=== PATIENT | male | born 1970 | race Caucasian/White ===

== ENCOUNTER 2017-11-30 10:25 | Inpatient (IN) ==
[2017-11-30] MEDS ORDERED: Aspirin 81 MG TAB.CHEW PO ONE (10:47)
[2017-11-30] MEDS ORDERED: Nitroglycerin 0.4 MG TAB.SUBL SL PRN (10:47)
[2017-11-30 11:03] LABS: Activated Partial Thrombo Time 29.2 Seconds (26.0-36.0)
[2017-11-30 11:17] LABS: Troponin I < 0.03 ng/mL (< 0.04)
--- NOTE | 2017-11-30 11:19 | Emergency Department Note ---
Disposition Clinical Impression: Chest pain Disposition: Admitted As Inpatient Condition: Good Referrals: Isaias Thakkar MD [Primary Care Provider] - Forms: ED Satisfaction Letter Time of Disposition: 12:18 Chest Pain HPI - General Chief Complaint: ED Chest Pain Stated Complaint: CP/L arm pain Time Seen by Provider: 11/30/17 10:28 Source: patient Mode of arrival: ambulatory Limitations: no limitations Vital Signs Reviewed: Yes Nursing Notes Reviewed: Yes - History of Present Illness HPI Narrative: Patient presents to the ED with the chief complaint of left arm pain and chest pain. Patient reports that his left forearm started tingling and having a funny sensation in it. 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 He states that today he had that same feeling, but he could not get rid of that. Reports that he had a sharp stabbing type pain in his left shoulder that was not worse with movement and nothing seemed to make it better. He states that he then started developing some left-sided chest tightness and squeezing. Reports intermittent episodes of feeling clammy and diaphoretic. Denies any nausea or vomiting. Pain in his chest, did not radiate but was associated with left arm pain. No jaw pain. No history of hypertension, diabetes, hyperlipidemia. He does not smoke. Does have a family history of coronary artery disease. Denies any fever or chills, shortness of breath, abdominal pain, vomiting, diarrhea, pain or swelling in his legs, rash. Severity scale (1-10): 0 - Related Data Home Medications Medication Instructions Recorded Confirmed Advil 01/09/16 01/09/16 Previous Rx's Medication Instructions Recorded Sulfamethoxazole/Trimeth DS 1 each PO BID #20 tablet 01/09/16 [Bactrim DS] HYDROcodone/Acet 5/325 mg [[place] 1 tab PO Q4H PRN #15 tab 07/09/17 5-325 mg] Orphenadrine [Norflex] 100 mg PO Q12HR PRN #14 tablet.er 07/09/17 Allergies Allergy/AdvReac Type Severity Reaction Status Date / Time No Known Allergies Allergy Verified 07/09/17 12:26 Review of Systems: As reviewed in the HPI. All other systems reviewed are negative or normal. Chest Pain PMH - Past Medical History Medical history: Reports: no medical history Psychiatric history: Reports: no psych history - Social History Smoking Status: Current every day smoker Alcohol use: Reports: occasionally Drug use: Reports: marijuana Physical Exam CONSTITUTIONAL: [well appearing in no acute distress] SKIN: [Warm, dry, and intact without rash] EYES: [extraocular movements are grossly intact, clear conjunctiva] HENT: [Normocephalic, atraumatic, moist mucus membranes] NECK: [no obvious swelling, normal range of motion] PULMONARY: [normal chest rise and fall, no respiratory distress or stridor CARDIOVASCULAR: [regular rate, distal extremities are warm and well perfused] GASTROINSTESTINAL: [nondistended, non-tender] GENITOURINARY: [deferred] NEUROLOGIC: [normal speech, moves all extremities] MUSCULOSKELETAL: [no gross deformities, atraumatic, left shoulder is nontender to palpation, full range of motion, no crepitus, ecchymosis, erythema or deformities. His pain is not reproducible.] PSYCHIATRIC: [normal mood and affect] - General General appearance: alert Course Course Narrative: Patient presenting with chest pain and left arm pain. We will workup. Patient will likely not stay for admission even though he does have risk factors and a concerning story. His EKG does not show any acute ischemic changes, but is not normal. We will await troponin results and then discuss with him the next best option. - Reevaluation(s) Reevaluation #1: Workup his back and is unremarkable. After further discussion with the patient. He does state that his chest pain started after he was walking up and down stairs today at his job. We discussed the available options and patient is agreeable to stay for further workup. We discussed the possibility of stress test versus heart catheter. He is agreeable. He denies any current chest pain. Vital Signs Temperature 98.4 F 11/30/17 10:29 Pulse Rate 85 11/30/17 10:29 Respiratory Rate 18 11/30/17 10:29 Blood Pressure 181/109 11/30/17 10:29 O2 Sat by Pulse Oximetry 98 11/30/17 10:29 Temperature 98.4 F 11/30/17 10:29 Pulse Rate 84 11/30/17 11:11 Respiratory Rate 18 11/30/17 11:11 Blood Pressure 163/93 11/30/17 11:11 O2 Sat by Pulse Oximetry 97 11/30/17 11:11 Oxygen Delivery Oxygen Delivery Room Air Chest Pain - Medical Records Medical records reviewed: Yes I reviewed the patient's medical records. - Lab Data Lab results reviewed: Yes I reviewed the patient's lab results. Result diagrams: 11/30/17 10:41 11/30/17 10:41 Lab Results 11/30/17 11/30/17 11/30/17 Range/Units 10:31 10:41 10:41 WBC 6.3 (4.3-11.1) K/mcL RBC 5.36 (4.19-5.50) M/mcL Hgb 16.4 (12.9-16.9) g/dL Hct 46.6 (37.5-50.1) % MCV 86.9 (83.0-100.0) fL MCH 30.6 (28.0-33.3) pg MCHC 35.2 (31.6-35.5) g/dL RDW 12.2 (11.5-14.5) % Plt Count 227 (140-400) K/mcL MPV 9.3 L (9.4-12.4) fL Immature Gran % 0.6 (0-4) % Seg Neutrophils % 66.5 % Lymphocytes % 24.2 % Monocytes % 5.9 % Eosinophils % 2.2 % Basophils % 0.6 % Neutrophils # 4.2 (1.6-8.9) K/mcL Lymphocytes # 1.5 (0.6-4.6) K/mcL Monocytes # 0.4 (0.0-1.3) K/mcL Eosinophils # 0.1 (0.0-0.6) K/mcL Basophils # 0.0 (0.0-0.2) K/mcL PT 11.0 (9.4-12.1) Seconds INR 1.0 APTT 29.2 (26.0-36.0) Seconds D-Dimer 291 (0-500) ng/mLFEU Sodium 139 (136-145) mEq/L Potassium 3.9 (3.5-5.1) mEq/L Chloride 110 H (98-107) mEq/L Carbon Dioxide 22 L (23-29) mEq/L BUN 13 (6-20) mg/dL Creatinine 0.71 (0.70-1.30) mg/dL Est GFR ( Amer) > 60 (> 60) Est GFR (Non-Af Amer) > 60 (> 60) BUN/Creatinine Ratio 18 (6-26) Glucose 140 H (70-105) mg/dL Calculated Osmolality 290 (280-300) Calcium 9.2 (8.6-10.3) mg/dL Magnesium 2.0 (1.6-2.6) mg/dL Troponin I < 0.03 (< 0.04) ng/mL - Radiology Data Radiology results reviewed: Yes I reviewed the patient's radiology results. - EKG Data EKG attestation: Yes I reviewed and interpreted this EKG. EKG results narrative: Sinus rhythm, rate 83, AL interval 140, QRS 113, QTC 395, normal axis, intraventricular conduction delay, no acute ischemic changes Heart Score - Score History: Highly Suspicious EKG: Non Specific repolarisation Disturbance Age: 45-65 Risk Factors: Equal/Greater than 3 risk factor or history of atherosclerotic disease Troponin: Less than normal limit HEART Score Total: 6 S.B.A.R. - S.B.A.R. Situation: Demographics, MOA Background: Presenting Complaint, Relevant PMH, Meds, & Allergies Assessment: Vital Signs, Course and respsone to treatment, Exam Concerns, Patient/Family Expectation, Pertinant Lab Results, Outstanding Labs Recommendation: Recommendation based on pending studies, treatments, or consults S.B.A.R. Report Given to: Dr. Suman Camargo.A.Gabi Repor Time: 12:18 Attestation Statement - Attestation Attestation: I, Gage Will DO, examined this patient [id number] and my medical decision-making was reviewed with Dr. Dariel Martin, Resident Physician. I agree with the documented findings, disposition and treatment plan as described except to the extent set forth below. Please see my progress notes for details.
[2017-11-30 11:45] LABS: BUN/Creatinine Ratio 18 (6-26); Basophils % 0.6 %; Blood Urea Nitrogen 13 mg/dL (6-20); Calcium 9.2 mg/dL (8.6-10.3); Carbon Dioxide 22 mEq/L (23-29); Chloride 110 mEq/L (98-107); Eosinophils # 0.1 K/mcL (0.0-0.6); Eosinophils % 2.2 %; Glucose 140 mg/dL (70-105); Hematocrit 46.6 % (37.5-50.1); Hemoglobin 16.4 g/dL (12.9-16.9); Immature Granulocytes % 0.6 % (0-4); Lymphocytes # 1.5 K/mcL (0.6-4.6); Lymphocytes % 24.2 %; Mean Corpuscular HGB Conc 35.2 g/dL (31.6-35.5); Mean Corpuscular Hemoglobin 30.6 pg (28.0-33.3); Mean Corpuscular Volume 86.9 fL (83.0-100.0); Mean Platelet Volume 9.3 fL (9.4-12.4); Monocytes # 0.4 K/mcL (0.0-1.3); Monocytes % 5.9 %; Neutrophils # 4.2 K/mcL (1.6-8.9); Osmolality,Calculated 290 (280-300); Platelet Count 227 K/mcL (140-400); Potassium 3.9 mEq/L (3.5-5.1); Red Blood Count 5.36 M/mcL (4.19-5.50); Red Cell Distribution Width 12.2 % (11.5-14.5); Segmented Neutrophils % 66.5 %; Sodium 139 mEq/L (136-145); eGFR For African Americans > 60 (> 60); eGFR For Non-African Americans > 60 (> 60)
--- NOTE | 2017-11-30 12:03 | Emergency Department Note ---
Disposition Clinical Impression: Chest pain Qualifiers: Chest pain type: unspecified Qualified Code(s): R07.9 - Chest pain, unspecified Disposition: Admitted As Inpatient Condition: Fair Referrals: Isaias Thakkar MD [Primary Care Provider] - Forms: ED Satisfaction Letter Time of Disposition: 12:29 General Adult HPI - General Chief complaint: ED Chest Pain Stated complaint: CP/L arm pain Time Seen by Provider: 11/30/17 10:28 Source: patient Mode of arrival: ambulatory Limitations: no limitations - History of Present Illness Pain Scale: 0 - Related Data Home Medications Medication Instructions Recorded Confirmed Advil 01/09/16 01/09/16 Previous Rx's Medication Instructions Recorded Sulfamethoxazole/Trimeth DS 1 each PO BID #20 tablet 01/09/16 [Bactrim DS] HYDROcodone/Acet 5/325 mg [[place] 1 tab PO Q4H PRN #15 tab 07/09/17 5-325 mg] Orphenadrine [Norflex] 100 mg PO Q12HR PRN #14 tablet.er 07/09/17 Allergies Allergy/AdvReac Type Severity Reaction Status Date / Time No Known Allergies Allergy Verified 07/09/17 12:26 Past Medical History - Past Medical History Medical history: Reports: no medical history Psychiatric history: Reports: no psych history - Social History Smoking Status: Current every day smoker Smokeless Tobacco Status: No Alcohol use: Reports: occasionally Drug use: Reports: marijuana Physical Exam - General Limitations: no limitations General appearance: alert Course Vital Signs Temperature 98.4 F 11/30/17 10:29 Pulse Rate 85 11/30/17 10:29 Respiratory Rate 18 11/30/17 10:29 Blood Pressure 181/109 11/30/17 10:29 O2 Sat by Pulse Oximetry 98 11/30/17 10:29 Temperature 98.4 F 11/30/17 10:29 Pulse Rate 84 11/30/17 11:11 Respiratory Rate 18 11/30/17 11:11 Blood Pressure 163/93 11/30/17 11:11 O2 Sat by Pulse Oximetry 97 11/30/17 11:11 Oxygen Delivery Oxygen Delivery Room Air Medical Decision Making - Lab Data Result diagrams: 11/30/17 10:41 11/30/17 10:41 Lab Results 11/30/17 11/30/17 11/30/17 Range/Units 10:31 10:41 10:41 WBC 6.3 (4.3-11.1) K/mcL RBC 5.36 (4.19-5.50) M/mcL Hgb 16.4 (12.9-16.9) g/dL Hct 46.6 (37.5-50.1) % MCV 86.9 (83.0-100.0) fL MCH 30.6 (28.0-33.3) pg MCHC 35.2 (31.6-35.5) g/dL RDW 12.2 (11.5-14.5) % Plt Count 227 (140-400) K/mcL MPV 9.3 L (9.4-12.4) fL Immature Gran % 0.6 (0-4) % Seg Neutrophils % 66.5 % Lymphocytes % 24.2 % Monocytes % 5.9 % Eosinophils % 2.2 % Basophils % 0.6 % Neutrophils # 4.2 (1.6-8.9) K/mcL Lymphocytes # 1.5 (0.6-4.6) K/mcL Monocytes # 0.4 (0.0-1.3) K/mcL Eosinophils # 0.1 (0.0-0.6) K/mcL Basophils # 0.0 (0.0-0.2) K/mcL PT 11.0 (9.4-12.1) Seconds INR 1.0 APTT 29.2 (26.0-36.0) Seconds D-Dimer 291 (0-500) ng/mLFEU Sodium 139 (136-145) mEq/L Potassium 3.9 (3.5-5.1) mEq/L Chloride 110 H (98-107) mEq/L Carbon Dioxide 22 L (23-29) mEq/L BUN 13 (6-20) mg/dL Creatinine 0.71 (0.70-1.30) mg/dL Est GFR ( Amer) > 60 (> 60) Est GFR (Non-Af Amer) > 60 (> 60) BUN/Creatinine Ratio 18 (6-26) Glucose 140 H (70-105) mg/dL Calculated Osmolality 290 (280-300) Calcium 9.2 (8.6-10.3) mg/dL Magnesium 2.0 (1.6-2.6) mg/dL Troponin I < 0.03 (< 0.04) ng/mL Attestation Statement - Attestation Attestation: I, Gage Will DO, examined this patient [id number] and my medical decision-making was reviewed with Dr. Dariel Martin, Resident Physician. I agree with the documented findings, disposition and treatment plan as described except to the extent set forth below. Please see my progress notes for details. 47-year-old male presents emergency room a left-sided arm pain that started 4 days ago. Initially started in his left forearm and is now rated way up past the elbow into the left shoulder and into the left anterior chest wall. Patient said that he felt some heaviness this morning while he was at work. The symptoms resolved after arrival here. He did describe some sweating sensation while here. He did not take any nitroglycerin. He does have a family history of cardiac disease as well as being a smoker and having elevated blood pressure. Patient denies any trauma or injury. Currently denying chest pain shortness of breath headache vision changes nausea vomiting or diarrhea. He has no other symptoms or complaints at this time. Patient will have screening evaluation completed CBC chemistry EKG labs including troponin and BMP and CBC. Chest x-ray and EKG are still pending. Repeat EKG to be collected. Patient does not have any anginal-like presentation this time and some of his symptoms do appear to be radicular in nature with the presence starting in his left arm approximately 4 days ago. Patient's heart score does have a low risk at this point based on family history. Patient will have stratification completed and discuss disposition. Currently he does not require any other intervention. See detailed documentation of the physical exam, medical intervention, medical decision-making and disposition in the resident physician's note. No critical care provider the patient's treatment course at this time 1215 Patient did disclose that he did have anginal symptoms while going upstairs today. After this conversation was having determined the patient would be more benefited from a admission for observation this point. He agrees this is accommodating to the care. He has not had any symptoms or here. Aspirin was given and no nitroglycerin was required. Hospitalist dr. Martell reviewed the case and no other recommendations or concerns at this time. Patient will not be started on a heparin drip considering he is low risk at this point.
[2017-11-30] MEDS ORDERED: Naloxone 0.4 MG/ML INJ IVP PRN ×2 (12:25→12:26)
--- NOTE | 2017-11-30 12:50 | Internal Med History&Physical ---
Addendum entered and electronically signed by Rebeka Varghese 11/30/17 13:15: HPI: This is a 47-year-old gentleman with no past medical history of cardiac disease presented with left arm pain and chest pain. She had a chest pain on and off in the past 4 days. Patient reports that his left forearm started tingling and having a funny sensation. He states that today he had that same feeling, but he could not get rid of that. Reports that he had a sharp stabbing type pain in his left shoulder that was not worse with movement and nothing seemed to make it better. He states that he then started developing left-sided chest tightness and squeezing. Reports intermittent episodes of feeling clammy and diaphoretic. Denies any nausea or vomiting. Pain in his chest, did not radiate but was associated with left arm pain. No jaw pain. No history of hypertension, diabetes, hyperlipidemia. He does smoke. Does have a family history of coronary artery disease. Denies any fever or chills, shortness of breath, abdominal pain, vomiting, diarrhea, pain or swelling in his legs, rash. At the ED, he was found to have elevated BP, labs were unremarkable, EKG no acute ST-T change, first set of troponin negative. Due to his cardiovascular risk factors, he will be admitted as observation for further workup. Original Note: <Rebeka Varghese - Last Filed: 11/30/17 12:48> Date of Encounter: 11/30/17 Time of Encounter: 12:48 Internal Medicine - H&P: HPI History of present illness: Mr. Conklin is a 47 year old male Past Med Surg Social Fam HX - Past Medical History Source: patient Medical history: hypertension Psychiatric history: no psych history - Past Surgical History Surgical History: no surgical history - Social History Smoking Status: Current every day smoker Smokeless Tobacco Status: Yes Alcohol use: occasionally Drug use: marijuana - Family History Mother Race: Hx Family Cardiac Disorders: Yes Internal Medicine - H&P: Meds No Known Home Drugs 11/30/17 [History] 3 Allergy/AdvReac Type Severity Reaction Status Date / Time No Known Allergies Allergy Verified 07/09/17 12:26 All Systems PM: A 10-system review of systems was performed and is negative for pertinent findings except as documented above in the HPI. Review of systems: REVIEW OF SYSTEMS: CONSTITUTIONAL: No weight loss, fever, chills, weakness or fatigue. HEENT: Eyes: No visual loss, blurred vision, double vision or yellow sclerae. Ears, Nose, Throat: No hearing loss, sneezing, congestion, runny nose or sore throat. SKIN: No rash or itching. CARDIOVASCULAR: see HPI. RESPIRATORY: see HPI. GASTROINTESTINAL: No anorexia, nausea, vomiting or diarrhea. No abdominal pain or blood. GENITOURINARY: No dysuria, urgency, or frequency. NEUROLOGICAL: No headache, dizziness, syncope, paralysis, ataxia, numbness or tingling in the extremities. No change in bowel or bladder control. MUSCULOSKELETAL: No muscle, back pain, joint pain or stiffness. HEMATOLOGIC: No anemia, bleeding or bruising. LYMPHATICS: No enlarged nodes. No history of splenectomy. PSYCHIATRIC: No history of depression or anxiety. ENDOCRINOLOGIC: No reports of sweating, cold or heat intolerance. No polyuria or polydipsia. - Constitutional Vitals: Temp Pulse Resp BP Pulse Ox 98.4 F 77 18 163/93 98 11/30/17 10:29 11/30/17 12:29 11/30/17 12:29 11/30/17 11:11 11/30/17 12:29 General appearance: Present: A&O X 3 Exam: PHYSICAL EXAMINATION: GENERAL APPEARANCE: The patient is alert, oriented and in no acute distress. HEENT: Head is normocephalic. The sinuses are nontender. Pupils are equal and reactive. The nares are patent. Oropharynx clear without lesions. NECK: Supple without lymphadenopathy. HEART: Regular rate and rhythm. LUNGS: No crackles or wheezes are heard. ABDOMEN: Soft, nontender, nondistended with good bowel sounds heard. Inguinal area is normal. EXTREMITIES: Without cyanosis, clubbing or edema. NEUROLOGICAL: Gross nonfocal. SKIN: Warm and dry without any rash. Internal Med - H&P Results - Labs CBC & Chem 7: 11/30/17 10:41 11/30/17 10:41 - Assessment and plan (1) Chest pain Current Visit: Yes Status: Acute Assessment and plan: 47-year-old male with no known past medical history of heart disease but does have cardiovascular risk factors including smoking and hypertension presented with acute onset of chest pain. - Typical chest pain per patient description, EKG no acute ST-T change, first set of troponin normal. - Because of risk factors, we will continue further workup including cycle troponin, telemetry monitoring, and a stress test. - Lipid panel in the morning. - Continue aspirin daily. Qualifiers: Chest pain type: unspecified Qualified Code(s): R07.9 - Chest pain, unspecified (2) Hypertension Current Visit: Yes Status: Acute Assessment and plan: - History of hypertension, controlled by lifestyle modification including weight loss. - Smoking cessation discussed with patient, furthermore monitoring and management as outpatient. Qualifiers: Hypertension type: essential hypertension Qualified Code(s): I10 - Essential (primary) hypertension - Time Spent With Patient Total time spent is greater than 50% in coordination of care (as documented) at patient's floor/unit and/or counseling patient: Greater than 35 minutes <Ashley Patel - Last Filed: 11/30/17 16:02> Date of Encounter: 11/30/17 Internal Medicine - H&P: HPI History of present illness: Mr. Conklin is a 47 year old male All Systems PM: A 10-system review of systems was performed and is negative for pertinent findings except as documented above in the HPI. - Constitutional Vitals: Temp Pulse Resp BP Pulse Ox 98.4 F 77 18 163/93 98 11/30/17 10:29 11/30/17 12:29 11/30/17 12:29 11/30/17 11:11 11/30/17 12:29 Internal Med - H&P Results - Labs CBC & Chem 7: 11/30/17 10:41 11/30/17 10:41 - Attending Attestation Patient examined, reviewed the note. Patient has multiple risk factors such as hypertension with noncompliance, chronic a smoker, typical chest pain, strong CAD history in mother. Patient never had cardiac evaluation therefore will admit patient on telemetry bed with serial troponin, aspirin, beta jairon, statin, and nitroglycerin, oxygen. Echocardiogram ordered. Will also schedule for nuclear stress test tomorrow morning. 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 - Assessment and plan (1) Chest pain Current Visit: Yes Status: Acute Qualifiers: Chest pain type: unspecified Qualified Code(s): R07.9 - Chest pain, unspecified (2) Hypertension Current Visit: Yes Status: Acute Qualifiers: Hypertension type: essential hypertension Qualified Code(s): I10 - Essential (primary) hypertension - Time Spent With Patient Total time spent is greater than 50% in coordination of care (as documented) at patient's floor/unit and/or counseling patient:
[2017-11-30] MEDS ORDERED: Dextrose Gel 15 GM/37.5 ML TUBE PO PRN ×2 (13:09)
[2017-11-30] MEDS ORDERED: *HR* Dextrose 50 % in Water (Syg) 50 ML SYRINGE IVP PRN (13:09)
[2017-11-30] MEDS ORDERED: D5% in Water 1,000 ML IVC PRN (13:09)
[2017-11-30] MEDS: Insulin LISPRO 300 UNITS/3 ML VIAL SQ SCH ×2 (16:12→19:22)
[2017-11-30] MEDS: *HR* Heparin 5,000 UNIT/ML VIAL SQ SCH (16:14)
[2017-11-30] MEDS: Acetaminophen 325 MG TABLET PO PRN (20:39)
[2017-11-30] MEDS ORDERED: Insulin LISPRO 300 UNITS/3 ML VIAL SQ SCH (21:00)
[2017-11-30 23:35] LABS: Amphetamine Screen,Urine Negative ng/mL (Cutoff=1000); Barbiturate Screen,Urine Negative ng/mL (Cutoff=200); Benzodiazepines Screen,Urine Negative ng/mL (Cutoff=200); Cannabinoid Screen,Urine Positive ng/mL (Cutoff = 50); Cocaine Screen,Urine Negative ng/mL (Cutoff= 300); Opiate Screen,Urine Negative ng/mL (Cutoff=300); Phencyclidine Screen,Urine Negative ng/mL (Cutoff=25)
[2017-12-01] MEDS: *HR* Heparin 5,000 UNIT/ML VIAL SQ SCH ×2 (05:47→17:30)
[2017-12-01 07:27] LABS: Chol/HDL Ratio 6.6 (0-4.9)
[2017-12-01 07:28] LABS: BUN/Creatinine Ratio 18 (6-26); Blood Urea Nitrogen 12 mg/dL (6-20); Carbon Dioxide 20 mEq/L (23-29); Chloride 111 mEq/L (98-107); Glucose 103 mg/dL (70-105); Osmolality,Calculated 292 (280-300); Potassium 4.3 mEq/L (3.5-5.1); Sodium 141 mEq/L (136-145); eGFR For African Americans > 60 (> 60); eGFR For Non-African Americans > 60 (> 60)
[2017-12-01 07:57] LABS: Basophils % 0.4 %; Eosinophils # 0.2 K/mcL (0.0-0.6); Eosinophils % 2.4 %; Hematocrit 47.1 % (37.5-50.1); Hemoglobin 16.5 g/dL (12.9-16.9); Immature Granulocytes % 0.5 % (0-4); Lymphocytes # 1.9 K/mcL (0.6-4.6); Lymphocytes % 25.5 %; Mean Corpuscular Hemoglobin 31.1 pg (28.0-33.3); Mean Corpuscular Volume 88.9 fL (83.0-100.0); Mean Platelet Volume 9.5 fL (9.4-12.4); Monocytes # 0.6 K/mcL (0.0-1.3); Monocytes % 8.6 %; Neutrophils # 4.6 K/mcL (1.6-8.9); Platelet Count 228 K/mcL (140-400); Red Cell Distribution Width 12.2 % (11.5-14.5); Segmented Neutrophils % 62.6 %
[2017-12-01 08:08] LABS: Estimated Average Glucose 97 mg/dl
[2017-12-01] MEDS: Acetaminophen 325 MG TABLET PO PRN (08:53)
[2017-12-01] MEDS: Insulin LISPRO 300 UNITS/3 ML VIAL SQ SCH ×3 (08:57→16:41)
[2017-12-01] MEDS: Aspirin Enteric Coated 81 MG Tablet PO SCH (08:57)
--- NOTE | 2017-12-01 12:25 | Discharge Summary ---
- NOTES TO OUTPATIENT PROVIDER Notes to Outpatient Provider: Pt was admitted for chest pain. Trops negative, chest xray negative. Pt pain free after admission. 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 Orders not resulted at time of discharge: Pending orders 12/01/17 07:00 NM aydin perf SPECT multi [NM] Routine Date of Encounter: 12/01/17 Time of Encounter: 09:25 - Discharge Diagnosis (1) Chest pain Priority: Primary Status: Acute Assessment and Plan: No prior history. Risk factors include smoking, HTN. No HLD or DM, A1c WNL. Pt pain free today. Troponins negative, chest xray negative. Stress test showed small area of perfusion defect respresenting ischemia. Gated EF 68%. Cardiology consulted, pt having LHC today. Continue ASA and telemetry. Pt will have evaluation for CABG tomorrow. Qualifiers: Chest pain type: unspecified Qualified Code(s): R07.9 - Chest pain, unspecified (2) Hypertension Priority: Secondary Status: Chronic Assessment and Plan: Blood pressure well controlled. Pt does not take any medication at home. Continue to monitor. Recommend smoking cessation. Qualifiers: Hypertension type: essential hypertension Qualified Code(s): I10 - Essential (primary) hypertension (3) DVT prophylaxis Priority: Secondary Status: Acute Assessment and Plan: Heparin SQ (4) Abnormal stress test Priority: Secondary Status: Acute Assessment and Plan: Stress test today abnormal, small sized, mild to moderate intensity stress perfusion defect involving the mid to distal inferior wall representing ischemia. There is also small sized, very mild intensity stress perfusion defect involving the mid anterior wall, cannot exclude ischemia. Gated EF 68%. Patient taken for LHC by cardiology. Hospital course: Mr. Conklin is a 47 year old male with PMH of HTN, no prior history of heart disease. Pt presented to the ED with c/o intermittent left chest pain for 4 days. He reported that his left forearm ahd tingling and "felt funny." Pt reports that pain was sharp and stabbing in his left shoulder and was worth with movement. He reports nausea and diaphoresis. Pt was admitted for evaluation. Risk factors include smoking and hypertension. Troponins were negative, chest xray is negative. STress test showed ischemia and cardiology was consulted. 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 Pt will have evaluation for CABG 12/02/17/ Pt has remained pain free and we discussed methods of smoking cessation. Pt did not verbalize interest in smoking cessation. Discharge discussed with: patient Time spent discussing smoking cessation with patient: 3 to 10 minutes - Time Spent with Patient Total time spent providing and/or coordinating discharge services: Less than 30 minutes - Discharge Medications Prescriptions: Aspirin Enteric Coated [Aspirin EC] 81 mg PO DAILY #30 tablet. Metoprolol [Lopressor] 12.5 mg PO BID #60 tablet Home Medications: Aspirin Enteric Coated [Aspirin EC] 81 mg PO DAILY #30 tablet. 12/01/17 [Rx] Metoprolol [Lopressor] 12.5 mg PO BID #60 tablet 12/01/17 [Rx] Allergies/Adverse Reactions: 3 Allergy/AdvReac Type Severity Reaction Status Date / Time No Known Allergies Allergy Verified 07/09/17 12:26 Date of admission: 11/30/17 12:40 Primary care physician: Isaias Thakkar MD Consults: 12/01/17 12:20 Consult to Cardiology [CONS] Routine Comment: Consulting Provider: Cardiology Ellen Reason for Consult: Abnormal stress. Trops negative, no prior history. Chest pain free. Call Completed: Yes Discharging clinician: Merry Pozo Anticipated date of discharge: 12/01/17 - Constitutional Vitals: Temp Pulse Resp BP Pulse Ox 98.4 F 78 17 125/83 93 12/01/17 11:02 12/01/17 11:02 12/01/17 11:02 12/01/17 11:02 12/01/17 11:02 General appearance: Present: cooperative, A&O X 3, pleasant, no acute distress, answers questions appropriately - Head Head exam: Present: atraumatic, normal inspection, normocephalic - Eye Eye exam: Present: conjuntiva pink, sclera anicteric - Neck Neck exam general surgery: Present: supple, trachea midline. Absent: lymphadenopathy - Respiratory Respiratory exam: Present: CTAB. Absent: accessory muscle use, rales, rhonchi, wheezes - Cardiovascular Cardiovascular exam: Present: RRR, +S1, +S2. Absent: bradycardia, diastolic murmur, gallop, rubs, systolic murmur, tachycardia - GI/Abdominal GI/Abdominal exam: Present: normal bowel sounds, soft. Absent: distended, hepatomegaly, tenderness - Extremities Exam Extremities exam: Present: normal capillary refill, normal inspection, warm, radial pulses palpable and symmetrical. Absent: calf tenderness, cyanotic, pedal edema, tenderness - Neurological Exam Neurological exam: Present: alert, oriented X3, no focal deficits. Absent: facial droop, speech deficit - Skin Skin exam: Present: dry, intact, normal color, warm. Absent: rash - Patient Status Disposition: Home, Self-Care Condition: Good Functional capacity at discharge: independent ambulation Overall status at discharge: patient is back to baseline - Discharge Instructions Follow Up With: Isaias Thakkar MD [Primary Care Provider] - 12/07/17 10:15 am Additional Instructions: Please take your new medications as directed. Follow up with your PCP and cardiology as scheduled. Return to the ER as needed for any other problems or concerns. Stop smoking, this a way to reduce your risk of further heart disease. Eat a low cholesterol, low fat diet to also help to reduce your risk Return to your normal activities as tolerated. Return to work after you are cleared by your PCP. - Diet and Activity Activity: increase activity as tolerated, return to work once cleared by your PCP/specialist Diet: low fat, low cholesterol
--- NOTE | 2017-12-01 12:40 | Electrocardiograph Report ---
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
--- NOTE | 2017-12-01 14:01 | Cardiology Consult Note ---
Addendum entered and electronically signed by Luis Mcgrath CNP 12/01/17 15:48 : Clarification of stress test result below, there was also a small sized, very mild intensity stress perfusion defect involving the mid anterior wall noted on report, ischmia in that area cannot be ruled out. Original Note: Date of Encounter: 12/01/17 Time of Encounter: 13:57 Assessment and Plan (1) Abnormal stress test Current Visit: Yes Status: Acute Stress test reviewed with patient and . There was a small sized, mild- moderate intensity defect in the mid-distal inferior wall concerning for ischemia. TTE shows preserved EF. Cardiac risk factor include tobacco use and HTN. Currently pain free. I discussed LHC vs medical management. He would like to proceed with LHC. R/B/A of LHC reviewed. (2) Chest pain Current Visit: Yes Status: Acute Currently pain free. NTG PRN. See plan above. Qualifiers: Chest pain type: unspecified Qualified Code(s): R07.9 - Chest pain, unspecified (3) Hypertension Current Visit: Yes Status: Chronic Hypertensive on admission. Lopressor started during stay and b/p improved. Low sodium diet. Qualifiers: Hypertension type: essential hypertension Qualified Code(s): I10 - Essential (primary) hypertension Discussion w patient/family: The assessment and plan as outlined above was discussed with the patient and/or family members who expressed understanding and agreement. All questions were answered. Thank you for involving us in the care of your patient. Please call with any questions. History of Present Illness Consult date: 12/01/17 Requesting physician: Merry Pozo Consult reason: abnormal stress test Chief complaint: Chest pain History of present illness: Mr. Conklin is a 47 year old male with past medical history of HTN, tobacco use , and ETOH use who presented with the c/o intermittent chest and left arm tingling for the past four days. C/o tingling in his forearm and hands when going to work. Reports increased stress at work. Yesterday he developed mid scapular pain and left chest pain and tingling lasting for one hour. He feels like his work stress aggravates his symptoms. Denies significant symptoms with exertion. C/o intermittent diaphoresis today. Denies SOB or palpitations. Denies previous history of CAD. Past Med Surg Social Fam HX - Past Medical History Attestation: Yes The following information was validated with the patient. Medical history: hypertension Psychiatric history: no psych history - Past Surgical History Surgical History: vasectomy - Social History Smoking Status: Current every day smoker Packs per day: 1 Smokeless Tobacco Status: Yes Alcohol use: occasionally (12 beers a week) Drug use: marijuana - Family History Mother Race: Living Status: Still Living Hx Family Cardiac Disorders: Yes Hx Family Endocrine Disorder: Yes (DM) Medications and Allergies Aspirin Enteric Coated [Aspirin EC] 81 mg PO DAILY #30 tablet.dr 12/01/17 [Rx] Metoprolol [Lopressor] 12.5 mg PO BID #60 tablet 12/01/17 [Rx] 3 Allergy/AdvReac Type Severity Reaction Status Date / Time No Known Allergies Allergy Verified 07/09/17 12:26 All Systems Review: The remainder of the systems were reviewed and are negative Physical Examination Vital Signs, Last 4 Hours Temp Pulse Resp BP Pulse Ox 12/01/17 11:02 98.4 F 78 17 125/83 93 General: Conversant, No Apparent Distress HEENT: Atraumatic, Normocephaly, Mucus Membranes Moist Neck: No JVD, Normal carotid pulses Cardiac: Reg Rate and Rhythm, Normal S1 and S2, No Murmur Lungs: Normal Breath Sounds, No Wheeze, Rales, Rhonchi Neuro: Alert and responsive, No focal deficits noted Abdomen: Soft, Non-Tender Skin: No rashes noted on visualized skin Musculoskeletal: No Chest Wall Tenderness Extremities: No Clubbing, No Cyanosis, No Edema, Normal Pulses Results 12/01/17 06:04 12/01/17 06:04 Lab Results 11/30/17 11/30/17 12/01/17 16:24 22:09 06:04 WBC 7.4 Hgb 16.5 Hct 47.1 Plt Count 228 Sodium Potassium Chloride Carbon Dioxide BUN Creatinine Glucose Calcium Troponin I < 0.03 < 0.03 12/01/17 06:04 WBC Hgb Hct Plt Count Sodium 141 Potassium 4.3 Chloride 111 H Carbon Dioxide 20 L BUN 12 Creatinine 0.66 L Glucose 103 Calcium 9.0 Troponin I - Imaging and Cardiology Stress Test: report reviewed Echo: report reviewed - EKG Interpretation EKG results cardiology: personally reviewed Consult Discharge Plan - Plan Additional Instructions: Please take your new medications as directed. Follow up with your PCP and cardiology as scheduled. Return to the ER as needed for any other problems or concerns. Stop smoking, this a way to reduce your risk of further heart disease. Eat a low cholesterol, low fat diet to also help to reduce your risk Return to your normal activities as tolerated. Return to work after you are cleared by your PCP. Referrals: Isaias Thakkar MD [Primary Care Provider] - 12/07/17 10:15 am Prescriptions: Aspirin Enteric Coated [Aspirin EC] 81 mg PO DAILY #30 tablet. Metoprolol [Lopressor] 12.5 mg PO BID #60 tablet
[2017-12-01] MEDS ORDERED: Heparin 1,000 UNITS/500 mL 500 ML ONE (14:29)
[2017-12-01] MEDS ORDERED: ISOVUE-370 200 ML INFUS..BTL IV ONE ×2 (14:29→15:08)
[2017-12-01] MEDS ORDERED: 0.9 % Sodium Chloride 1,000 ML ONE ×2 (14:29→14:54)
[2017-12-01] MEDS ORDERED: Nitroglycerin 1,000 MCG/10 ML VIAL IV ONE (14:29)
[2017-12-01] MEDS ORDERED: *HR* Heparin 10,000 UNIT/10 ML VIAL ONE (14:29)
--- NOTE | 2017-12-01 14:54 | Pre-Sedation Evaluation ---
Pre-sedation evaluation - Pre-sedation checklist Date of procedure: 12/01/17 Procedure: [facility] Recent Vitals: Last Vital Signs Temp 98.4 F 12/01/17 11:02 Pulse 78 12/01/17 11:02 Resp 17 12/01/17 11:02 BP 125/83 12/01/17 11:02 Pulse Ox 93 12/01/17 11:02 H&P (including ROS) documented in medical record: Yes Previous reaction to sedatives/anesthetics: No Dietary Status: NPO after Midnight Airway Assessment: Patient can open mouth completely, TMJ function normal, Micrognathia (under-bite, receding chin) absent, Neck with adequate range of motion Dentition: No loose teeth or bridges Possible difficult airway: No ASA Classification *see protocol: CLASS II-Mild systemic disease Plan of Care: Pt appropriate candidate for procedure/moderate/conscious sedation , Risks/benefits of procedure/sedation discussed w/ patient/family
[2017-12-01] MEDS ORDERED: *HR* Midazolam HCl 5 MG/5 ML VIAL IVP ONE (14:57)
[2017-12-01] MEDS ORDERED: *HR* FentaNYL (PF) 250 MCG/5 ML VIAL ONE (14:58)
[2017-12-01] MEDS ORDERED: *HR* Bivalirudin 250 MG VIAL IVC ONE ×2 (15:21→15:22)
--- NOTE | 2017-12-01 15:50 | Invasive Diagnostic Lab Proc ---
Name: Andrea Conklin Date of Study: 12/01/2017 Date: 1970 Ht: 75.2in Medical Record#: [id number] Age: 47 Wt: 235.89lb Gender: Male BSA: 2.36 Order #: [id number] BMI: 29.33 Physicians Procedure Physician: Josette Cardenas MD, [facility] Referring MD: Referring MD: Staff Name Position Time In Carley Haji RN Monitor 02:54 PM Bernadine Samson RN Mobile Device Engineer 02:54 PM Alisa Kylee RT (R) Scrub 02:54 PM Indications Indication Abnormal Test - Stress Procedures Performed Procedure L HRT ARTERY/VENTRICLE ANGIO Pre-Procedure Checklist Informed consent is complete signed and on chart. H&P is on chart. ID band is on and ID verified with patient. Patient NPO for procedure The procedure was described for the patient and questions were answered. Blood Pressure: 125/83 ECG is on chart. Plan of Care Patient will tolerate the procedure without complications. Adequate level of comfort will be maintained. Hemodynamics will remain stable Patient will recover from procedure without complications. Respiratory function will be maintained. Cardiac rhythm will remain stable. Patient temperature will be maintained. Patient and/or family have verbalized understanding of the procedure. Patient Education Chief Complaint/Reason for Test: Cardiac Cath Developmental Category: Adult (18-64 years) Developmentally Appropriate for Age: Yes Learning Barriers: None Education Needs: Procedure Education Method: Verbal Information Taught: Cardiac Cath Educational Evaluation: Able to repeat information Intravenous Access Time IV Size Location DC'd Fluid/Drip Rate Units RN 02:25 PM 20g 1 /" Patent On Arrival Rt Antecubital Carley Haji RN Allergies NKDA No Known Allergies Vital Signs Time BP (mmHg) HR (bpm) O2 Sat. RR (bpm) LOC 02:25 PM 125 / 83 78 93 % 17 5 = Fully awake and oriented or at pre-proc level 02:57 PM / % 5 = Fully awake and oriented or at pre-proc level 02:57 PM / % 5 = Fully awake and oriented or at pre-proc level 02:58 PM 170 / 91 49 99 % 03:03 PM 159 / 96 61 98 % 03:08 PM 157 / 101 65 97 % 03:13 PM 148 / 92 62 96 % 03:18 PM 157 / 92 63 97 % 03:23 PM 148 / 94 63 97 % 03:28 PM 160 / 96 65 98 % Procedural Medications Time Medication Dose Units Method Given By 02:56 PM Oxygen 2 L/min nasal cannula Bernadine Samson RN 02:59 PM Versed 2 mg Intravenous Bernadine Samson RN 02:59 PM Fentanyl 50 mcg Intravenous Bernadine Samson RN 03:05 PM Benadryl 50 mg Intravenous Bernadine Samson RN 03:10 PM Versed 1 mg Intravenous Bernadine Samson RN 03:10 PM Fentanyl 25 mcg Intravenous Bernadine Samson RN 03:11 PM Lidocaine 2% 19 ml Subcutaneous Josette Cardenas MD, [facility] ASA Classification: CLASS II- Mild systemic disease (i.e. well-controlled diabetes, hypertension, asthma, cigarette smoking) Maximino Score Preprocedure Postprocedure Activity 2- Moves 4 extremities sustained head lift Activity 2- Moves 4 extremities sustained head lift Circulation 2- SBP +/= 20 points of pre-anesthetic level Circulation 2- SBP +/= 20 points of pre-anesthetic level Consciousness 2- Awake and alert oriented x 3 Consciousness 2- Awake and alert oriented x 3 O2 Saturation 2- Able to maintain O2 satruation of 92% on room air O2 Saturation 2- Able to maintain O2 satruation of 92% on room air Respiratory 2- Able to deep breathe and cough well Respiratory 2- Able to deep breathe and cough well Total Score 10 Total Score 10 Contrast Agent: Isovue Diagnostic Contrast: 69 ml Total Contrast: 69 ml Fluoro Dose: 316 mGy Procedure Log Time Note Enter By 02:54 PM 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 Bilateral groin prepped with Chloraprep by Bernadine Samson RN, then patient was draped. Skin intact. 02:54 PM Physican paged/called 14:54. 02:54 PM Physican responded and notified patient is ready 14:54 02:54 PM Physician arrived 14:54 02:54 PM Meet and greet completed 02:54 PM Sign in performed according to hospital policy. 02:54 PM Procedure start 14:54 02:55 PM CathStat 02:57 PM Time: 14:56 Oxygen on at 2 L/min per nasal cannula by Bernadine Samson RN devilionel 02:57 PM Time: 14:57 Patient comfortable and pain free: Yes 02:57 PM Vitals capture started with the following parameters, Patient=Adult, Interval=5 min, Initial [place]=706 mmHg, Deflation Rate=5 mmHg, Cuff placed on Right Arm 02:57 PM Time: 14:57LOC: 5 = Fully awake and oriented or at pre-proc level [email or web address] 02:58 PM HR=49 bpm, JKDY=080/91 mmhg, SpO2=99.0 %, Comment=sb 02:59 PM Recorded ECG: HR=54 Condition=Condition 1 02:59 PM Time: 14:59 Versed 2 mg Intravenous Given by Bernadine Samson RN familia 02:59 PM Time: 14:59 Fentanyl 50 mcg Intravenous Given by Bernadine Samson RN 03:03 PM HR=61 bpm, PIQW=856/96 mmhg, SpO2=98.0 %, Comment=sr 03:03 PM ASA Class CLASS II- Mild systemic disease (i.e. well-controlled diabetes, hypertension, asthma, cigarette smoking) [email or web address] 03:05 PM Time: 15:05 Benadryl 50 mg Intravenous Given by Bernadine Samson RN 03:06 PM Clinical Presentation: Unstable angina [email or web address] 03:07 PM Pressure channel 1 zeroed. 03:08 PM HR=65 bpm, MYAW=276/101 mmhg, SpO2=97.0 %, Comment=sr 03:10 PM Time out performed according to hospital policy [facility] 03:10 PM Time: 15:10 Versed 1 mg Intravenous Given by Bernadine Samson RN 03:10 PM Time: 15:10 Fentanyl 25 mcg Intravenous Given by Bernadine Samson RN mm 03:11 PM Time: 15:11 19 ml Lidocaine 2% to right groin Subcutaneous Given by Josette Cardenas MD, [facility] 03:12 PM Access obtained by percutaneous puncture. 5Fr 10cm Terumo [place] sheath placed in right Femoral artery. [id number] mmers 03:12 PM 0.035 145cm Navilyst 3mmJ wire [id number] [facility] 03:12 PM 5Fr FL 4 catheter inserted over the wire [facility] mm 03:12 PM Time: 14:57 Patient comfortable and pain free: Yes tsmmers 03:12 PM Time: 14:57LOC: 5 = Fully awake and oriented or at pre-proc level tsoummers 03:12 PM wire removed mm 03:13 PM HR=62 bpm, ZEBP=933/92 mmhg, SpO2=96.0 %, Comment=sr 03:13 PM LCA angiography performed in multiple views. tsoummers 03:13 PM Recorded Pressure: Ao, HR=63, Condition=Condition 1 (Aorta) Ao 135/96/114 03:15 PM Catheter removed [facility] 03:15 PM 5Fr FR 4 catheter inserted over the wire [facility] 03:15 PM RCA angiography performed in multiple views. mmers 03:16 PM Recorded Pressure: Ao, HR=87, Condition=Condition 1 (Aorta) Ao 137/103/120 03:16 PM Recorded Pressure: Ao, HR=88, Condition=Condition 1 (Aorta) Ao 132/103/118 03:17 PM Catheter removed [facility] 03:17 PM Pressure channel 1 zeroed. 03:18 PM Recorded Pressure: LV, HR=73, Condition=Condition 1 (Left Ventricle) LV 131/12/14 03:18 PM HR=63 bpm, QBPF=756/92 mmhg, SpO2=97.0 % 03:18 PM Recorded Pressure: LV, Ao, HR=66, Condition=Condition 1 (Left Ventricle) LV 117/17/18, (Aorta) Ao 127/83/105 03:19 PM 5Fr Pigtail catheter inserted over the wire [facility] 03:19 PM Catheter selectively placed [facility] 03:19 PM Bolus angiogram of left Ventricle complete: 8 ml/sec for a total of 24 mls tsoumm 03:19 PM Catheter removed tsoumm 03:19 PM Coronary Dominance: right tsoumm 03:23 PM HR=63 bpm, OCCK=099/94 mmhg, SpO2=97.0 %, Comment=sr 03:24 PM Bolus angiogram of right Femoral complete: 4 ml/sec for a total of 7 mls tsoumm 03:24 PM Procedure completed at 15:24 tsoummers 03:26 PM Sign out completed: Radiation Dose 316.04 mGy Fluoro Time: 1.0 Isovue 370 - 200ml contrast 69.4 ml given by Josette Cardenas MD, [facility]. Complications: NoneCardiac Rehab Consult needed: NoConfirmed administered medications: Yes tsoumm 03:26 PM Conversation between Interventionalist and CT Surgeon. tsoumm 03:[address] Pelayo at this time tsoummers 03:26 PM Did you address KESHA flow and Dominance? Yes tsoummers 03:26 PM Isovue 370 - 200ml,1 Bottle(s) used. tsoummers 03:27 PM Estimated Blood Loss: minimal tsoummers 03:27 PM Post ECG NSR tsoummers 03:27 PM Post Blood Pressure 148/94 tsoummers 03:27 PM Information taught Cardiac Cath tsoumm 03:27 PM Education needs Procedure, Plan of Care, and Responsibilities of Patient in Care tsoumm 03:27 PM Learning barriers :None tsoummers 03:28 PM HR=65 bpm, TKFV=661/96 mmhg, SpO2=98.0 %, Comment=sr 03:28 PM Education Methods Verbal tsoummers 03:28 PM Education evaluation Able to repeat information tsoummers 03:28 PM Plavix, Effient or Brilinta given No tsoummers 03:28 PM Delay to floor No tsoummers 03:28 PM Family placed in consult room. tsoummers 03:28 PM Complications: None tsoummers 03:28 PM Fluoro Time: 1 tsoummers 03:29 PM Isovue 370 - 200ml contrast 69.[address] Cardenas. tsoumm 03:29 PM Radiation Dose 316.04 mGy tsoummers 03:29 PM Arterial sheath pulled, Mynx closure device used and was Successful [id number] S/N. tsoummers 03:33 PM Report given to Melissa DOAN Pt taken to Room #36. 15:33 tsoummers 03:33 PM Site status No bleeding/hematoma - Rt Groin as reported by Sites, Kylee RT (R) at 15:33 tsoummers 03:33 PM Opsite applied tsoummers 03:33 PM Patient out of room: 15:33 tsoummers 03:39 PM Lesion found in Proximal RCA. Pre Stenosis: 20 Pre KESHA Flow: tsoummers 03:39 PM Lesion found in Mid RCA. Pre Stenosis: 70 Pre KESHA Flow: tsoummers 03:39 PM Lesion found in LMCA. Pre Stenosis: 50 Pre KESHA Flow: tsoummers 03:39 PM Lesion found in Proximal LAD. Pre Stenosis: 90 Pre KESHA Flow: tsoummers 03:39 PM Lesion found in Ramus. Pre Stenosis: 70 Pre KESHA Flow: tsoummers 03:39 PM Left Main Coronary Artery with 50% stenosis tsoummers 03:40 PM Proximal Left Anterior Descending Coronary Artery with 90% stenosis. If graft is supplying this territory, 0 % stenosis. tsoummers 03:40 PM Right Coronary, Right Posterior Descending Arteries with Right Posterolateral and Acute Marginal branches with 70 % stenosis. If graft is supplying this area, 0 % stenosis tsoummers 03:40 PM Ramus with 70% stenosis. If graft is supplying this area, 0 % stenosis tsoummers Complications Complication None Hemodynamics Pressures Site Systolic/A Wave Diastolic/V Wave Mean AO 135 96 114 AO 137 103 120 AO 132 103 118 LV 131 12 14 LV 117 17 18 AO 127 83 105 Post Procedure Information Blood Pressure: 148/94 mmHg Rhythm: NSR Post procedural instructions were given Closure Device Time Device Success/Fail 12/01/2017 3:29:00 PM MynxGrip Successful Site Checks Time Location Status Staff Sheath In? Note 03:33 PM Rt Groin No bleeding/hematoma Sites, Kylee RT (R) Pulses Time Site Pre-Procedure Post-Procedure Note 12/01/2017 2:25:00 PM Bilateral radial 2+ 12/01/2017 2:25:00 PM Bilateral DP & PT 2+ Updated by Carley Haji RN on 12/01/2017 3:42:58 PM electronically signed on 12/01/2017 3:43:35 PM with status of Final
--- NOTE | 2017-12-01 16:27 | Electrocardiograph Report ---
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
[2017-12-01] MEDS: traMADol 50 MG TABLET PO PRN (20:03)
[2017-12-02] MEDS: *HR* Heparin 5,000 UNIT/ML VIAL SQ SCH ×2 (06:11→17:46)
[2017-12-02] MEDS: Aspirin Enteric Coated 81 MG Tablet PO SCH (08:34)
[2017-12-02] MEDS: traMADol 50 MG TABLET PO PRN (08:35)
--- NOTE | 2017-12-02 09:39 | Cardiothoracic Consult Note ---
Date of Encounter: 12/02/17 Time of Encounter: 09:37 Assessment and Plan (1) CAD (coronary artery disease) Current Visit: Yes Status: Acute The patient is a 47-year-old hypertensive man with a strong family history of premature CAD. He began experiencing substernal chest pressure, intrascapular pain, and left forearm tingling, mostly associated with exertion. The symptoms were resolved spontaneously. He was evaluated at [facility] on 11/30/2017 and admitted for further cardiac workup. A nuclear stress test revealed an LVEF 68% and a small mild to moderate perfusion defect involving the inferior wall. Subsequent cardiac catheterization revealed severe 3 vessel CAD and an LVEF 60%. In particular the patient had a 50% distal left main lesion, a 90% proximal LAD lesion, a 70% proximal ramus intermediate branch lesion, and a 70% mid RCA lesion. He has been recommended for CABG. I concur with this recommendation. The STS risk calculator reveals an operative mortality risk 0.43%, deep sternal wound infection risk 0.36%, permanent stroke risk 0.26%, renal failure risk 0.72%, and a reoperation risk 3.02%. The patient understands the procedure, benefits, alternatives, and risks and gives his informed consent. The patient will undergo CABG in the morning. The assessment and plan as outlined above was discussed with the patient and/or family members who expressed understanding and agreement. All questions were answered. Qualifiers: Coronary Disease-Associated Artery/Lesion type: [place] artery [place] vs. transplanted heart: [place] heart Associated angina: with unstable angina Qualified Code(s): I25.110 - Atherosclerotic heart disease of [place] coronary artery with unstable angina pectoris - History of Present Illness Consult date: 12/01/17 Requesting physician: Josette Cardenas Consult reason: CABG evaluation Chief complaint: Substernal chest pressure and left arm pain History of present illness: Mr. Conklin is a 47 year old hypertensive man with a strong family history of premature CAD. He was in his usual state of good health until earlier this week when he began experiencing substernal chest pressure, intrascapular pain, and left forearm tingling. The symptoms typically occurred with exertion and resolves spontaneously. He was evaluated at [facility] emergency department on 11/30/2017. Given his presenting symptoms, is cardiac risk profile, and the family history of premature CAD, he was admitted for further cardiac workup. The patient underwent a nuclear stress test which revealed an LVEF 60% and a small mild to moderate intensity perfusion defect in the inferior wall. Subsequent cardiac catheterization revealed severe 3 vessel CAD and an LVEF 60% . In particular, the patient has a 50% distal left main lesion, a 90% proximal LAD lesion, a 70% proximal ramus intermediate branch lesion, a 20% proximal RCA lesion, a 70% mid RCA lesion. He has been recommended for CABG. Past Med Surg Social Fam HX - Past Medical History Medical history: coronary artery disease, hypertension, other (Tobacco abuse) Psychiatric history: no psych history - Past Surgical History Surgical History: vasectomy, other (Left knee arthroscopy) - Social History Smoking Status: Current every day smoker Packs per day: 1PPD X 20YRS Smokeless Tobacco Status: Yes Alcohol use: occasionally (12 beers a week) Drug use: marijuana Occupational status: employed Current living situation: Home - Independent Activity Level: Independent ambulation Recent Out of Country Travel Within the Last 8 Weeks: No Exposure or Possible Exposure to Illness During Travel: No - Family History Mother Race: Living Status: Still Living Hx Family Cardiac Disorders: Yes Hx Family Endocrine Disorder: Yes (DM) Medications and Allergies Aspirin Enteric Coated [Aspirin EC] 81 mg PO DAILY #30 tablet. 12/01/17 [Rx] Metoprolol [Lopressor] 12.5 mg PO BID #60 tablet 12/01/17 [Rx] 3 Allergy/AdvReac Type Severity Reaction Status Date / Time No Known Allergies Allergy Verified 07/09/17 12:26 All Systems Review: The remainder of the systems were reviewed and are negative Physical Examination Vital Signs, Last 4 Hours Temp Pulse Resp BP Pulse Ox 12/02/17 07:00 98.4 F 57 18 145/77 97 General: Conversant, No Apparent Distress HEENT: Atraumatic, Normocephaly, Trachea midline Neck: No JVD, Normal carotid pulses Cardiac: Reg Rate and Rhythm, Normal S1 and S2, No Murmur Lungs: Normal Breath Sounds, No Wheeze, Rales, Rhonchi Neuro: Alert and responsive, No focal deficits noted, Motor nerves intact, Sensory nerves intact Vascular: Normal capillary refill Abdomen: Soft, Non-tender Skin: No rashes noted on visualized skin Musculoskeletal: No Chest Wall Tenderness Extremities: No Clubbing, No Cyanosis, No Edema, Normal Pulses Results 12/01/17 06:04 12/01/17 06:04 - Imaging Chest Xray: image reviewed (Normal cardiac size. No active pulmonary disease.) Consult Discharge Plan - Plan Additional Instructions: Please take your new medications as directed. Follow up with your PCP and cardiology as scheduled. Return to the ER as needed for any other problems or concerns. Stop smoking, this a way to reduce your risk of further heart disease. Eat a low cholesterol, low fat diet to also help to reduce your risk Return to your normal activities as tolerated. Return to work after you are cleared by your PCP. Referrals: Isaias Thakkar MD [Primary Care Provider] - 12/07/17 10:15 am Prescriptions: Aspirin Enteric Coated [Aspirin EC] 81 mg PO DAILY #30 tablet. Metoprolol [Lopressor] 12.5 mg PO BID #60 tablet
--- NOTE | 2017-12-02 10:40 | Cardiology Progress Note ---
Date of Encounter: 12/02/17 Time of Encounter: 10:38 Assessment and Plan (1) CAD (coronary artery disease) Current Visit: Yes Status: Acute s/p LHC yesterday for abnormal stress test. LHC revealed double vessel CAD with left main disease. In particular the patient had a 50% distal left main lesion, a 90% proximal LAD lesion, a 70% proximal ramus intermediate branch lesion, and a 70% mid RCA lesion. He has been recommended for CABG. Plan is for CABG tomorrow. Right femoral access site healing well. No bleeding or hematoma noted. Mild ecchymosis. Continue ASA, Statin, BB. Cardiology signing off. Reconsult PRN. Will coordinate outpt follow-up in 4-6 weeks. Qualifiers: Coronary Disease-Associated Artery/Lesion type: [place] artery [place] vs. transplanted heart: [place] heart Associated angina: with unstable angina Qualified Code(s): I25.110 - Atherosclerotic heart disease of [place] coronary artery with unstable angina pectoris (2) Hypertension Current Visit: Yes Status: Chronic Hypertensive on admission. Lopressor started during stay and b/p improved. Low sodium diet. Qualifiers: Hypertension type: essential hypertension Qualified Code(s): I10 - Essential (primary) hypertension Discussion w patient/family: The assessment and plan as outlined above was discussed with the patient and/or family members who expressed understanding and agreement. All questions were answered. Thank you for involving us in the care of your patient. Please call with any questions. I will discuss all the above with Dr. Lora and make changes as necessary. Subjective Principal diagnosis: CAD Interval history: s/p LHC yesterday for abnormal stress test. LHC revealed double vessel CAD with left main disease. In particular the patient had a 50% distal left main lesion, a 90% proximal LAD lesion, a 70% proximal ramus intermediate branch lesion, and a 70% mid RCA lesion. He has been recommended for CABG. Plan is for CABG tomorrow. Objective Vital Signs, Last 4 Hours Temp Pulse Resp BP Pulse Ox 12/02/17 07:00 98.4 F 57 18 145/77 97 Vital Signs Temp Pulse Resp BP Pulse Ox 12/02/17 07:00 98.4 F 57 18 145/77 97 12/02/17 03:31 97.7 F 51 16 143/88 96 12/01/17 23:21 98.5 F 54 16 135/85 96 12/01/17 18:56 98.1 F 61 14 128/70 95 12/01/17 17:50 58 14 146/94 96 12/01/17 17:20 59 14 152/88 96 12/01/17 16:50 63 14 138/95 94 12/01/17 16:35 57 14 143/93 96 12/01/17 16:20 58 16 153/91 94 12/01/17 16:05 58 14 152/93 96 12/01/17 15:50 56 14 157/95 95 12/01/17 11:02 98.4 F 78 17 125/83 93 Intake and Output 12/01/17 12/02/17 12/02/17 23:59 07:59 15:59 Intake Total 240 / 240 Balance 240 / 240 Intake: Oral 240 / 240 Other: Meal Dinner Percent of Meal Consumed 100% 55% Weight 105.6 kg Patient Weight 12/02/17 23:59 Weight 105.6 kg General: Conversant, No Apparent Distress HEENT: Atraumatic, Normocephaly, Mucus Membranes Moist Neck: No JVD, Normal carotid pulses Cardiac: Reg Rate and Rhythm, Normal S1 and S2, No Murmur Lungs: Normal Breath Sounds, No Wheeze, Rales, Rhonchi Neuro: Alert and responsive, No focal deficits noted Abdomen: Soft, Non-Tender Skin: Other (right femoral access site healing well. No bleeding or hematoma noted. Mild ecchymosis.) Musculoskeletal: No Chest Wall Tenderness Extremities: No Clubbing, No Cyanosis, No Edema, Normal Pulses Results 12/01/17 06:04 12/01/17 06:04 Impressions Echocardiogram 11/30/17 13:10 Impressions: LVEF 60-65%. Normal right ventricular structure and function. Mild mitral regurgitation. Mild tricuspid regurgitation. Mild pulmonary hypertension. Left Ventricular Wall Motion: Rest Echo Findings All wall segments showed normal motion. Findings: Study Quality * Technically adequate exam. ECG Findings * Sinus bradycardia. Left Ventricle * LVEF 60-65%. * Normal LV chamber size, wall thickness and function. * Indeterminate diastolic function. Right Ventricle * Normal right ventricular structure and function. Left Atrium * Normal left atrial size. Right Atrium * Normal right atrial size. Mitral Valve * Normal mitral valve structure. * No mitral stenosis. * Mild mitral regurgitation. Aortic Valve * No aortic regurgitation. * Trileaflet aortic valve. * No aortic stenosis. Tricuspid Valve * Normal tricuspid valve structure. * Mild tricuspid regurgitation. * Estimated RA pressure is 8 mmHg. * Estimated RVSP is 41 mmHg. * Mild pulmonary hypertension. Pulmonic Valve * Pulmonic valve is not well visualized. * No pulmonic stenosis. * No pulmonic regurgitation. Pulmonary Artery * Pulmonary artery not well visualized. Aorta * Normally sized aortic root. Pericardium * There is no pericardial effusion present. Interatrial Septum * No evidence of PFO by color Doppler. IVC * The IVC is not dilated. * < 50% respiratory change. Active Medications Acetaminophen (Tylenol) 650 mg PO Q6HR PRN PRN Reason: Mild Pain/Fever Stop: 06/01/18 12:27 Last Admin: 12/01/17 08:53 Dose: 650 mg Aspirin (Aspirin Ec) 81 mg PO DAILY [facility] Stop: 06/02/18 09:01 Last Admin: 12/02/17 08:34 Dose: 81 mg Chlorhexidine Gluconate (Chlorhexidine Rinse) 15 ml MM BID [facility] Stop: 12/03/17 09:01 Dextrose/Water (Dextrose 50% (Syg)) 25 ml IVP AD PRN PRN Reason: Hypoglycemia Stop: 06/01/18 13:10 Glucagon (Glucagen) 1 mg IM ONCE PRN PRN Reason: Hypoglycemia Stop: 06/01/18 13:10 Glucose (Gluctose) 30 gm PO ONCE PRN PRN Reason: Hypoglycemia Stop: 06/01/18 13:10 Glucose (Gluctose) 15 gm PO ONCE PRN PRN Reason: Hypoglycemia Stop: 06/01/18 13:10 Heparin Sodium (Porcine) (Heparin) 5,000 unit SQ Q12HCO NALLELY Stop: 06/01/18 18:01 Last Admin: 12/02/17 06:11 Dose: 5,000 unit Dextrose (Dextrose 5%) 1,000 mls @ 100 mls/hr IVC .Q10H PRN PRN Reason: HYPOGLYCEMIA Stop: 06/01/18 13:10 Cefazolin Sodium (Ancef Syringe 2,000 Mg/20 Ml) 2,000 mg in 20 mls @ 200 mls/ hr IVPB PREOP ONE Stop: 12/03/17 07:05 Metoprolol Tartrate (Lopressor) 12.5 mg PO BID [facility] Stop: 06/01/18 13:16 Last Admin: 12/02/17 08:34 Dose: 12.5 mg Naloxone HCl (Narcan) 0.4 mg IVP Q2MIN PRN PRN Reason: SEE COMMENTS Stop: 06/01/18 12:26 Naloxone HCl (Narcan) 0.4 mg IVP Q2MIN PRN PRN Reason: SEE COMMENTS Stop: 06/01/18 12:27 Nitroglycerin (Nitroglycerin) 0.4 mg SL Q5MIN PRN PRN Reason: Chest Pain Stop: 06/01/18 10:48 Rosuvastatin Calcium (Crestor) 40 mg PO HS ONE Stop: 12/02/17 21:01 Tramadol HCl (Ultram) 50 mg PO Q6HR PRN PRN Reason: Moderate Pain Stop: 06/01/18 12:27 Last Admin: 12/02/17 08:35 Dose: 50 mg - Imaging and Cardiology Echo: report reviewed Cardiac cath: report reviewed - EKG Interpretation EKG results cardiology: other (12 hr tele AVG HR 54, no significant pauses or arrhythmias noted.) Consult Discharge Plan - Plan Additional Instructions: Please take your new medications as directed. Follow up with your PCP and cardiology as scheduled. Return to the ER as needed for any other problems or concerns. Stop smoking, this a way to reduce your risk of further heart disease. Eat a low cholesterol, low fat diet to also help to reduce your risk Return to your normal activities as tolerated. Return to work after you are cleared by your PCP. Referrals: Isaias Thakkar MD [Primary Care Provider] - 12/07/17 10:15 am Prescriptions: Aspirin Enteric Coated [Aspirin EC] 81 mg PO DAILY #30 tablet. Metoprolol [Lopressor] 12.5 mg PO BID #60 tablet
--- NOTE | 2017-12-02 10:46 | Anesthesia Evaluation PreOp ---
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 12/01/17 [Rx] Metoprolol [Lopressor] 12.5 mg PO BID #60 tablet 12/01/17 [Rx] 3 Allergy/AdvReac Type Severity Reaction Status Date / Time No Known Allergies Allergy Verified 07/09/17 12:26 - Meds/Allergy Pre-op Review Medications Reviewed: Yes Allergies Reviewed: Yes Beta Blockers on Current Med List: Yes If Beta Blockers taken, Date/Time (Last Dose taken): 5-9 @2100 Anesthesia Results - Labs 12/03/17 05:11 12/03/17 05:11 - Imaging Additional studies: cath:Impressions: Double vessel coronary artery disease with L main disease. The left ventricle is normal and has normal contractility EF 60% echo: Impressions: LVEF 60-65%. Normal right ventricular structure and function. Mild mitral regurgitation. Mild tricuspid regurgitation. Mild pulmonary hypertension. 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
[2017-12-02] MEDS ORDERED: Norepinephrine 4 MG in D5% in Water 250 ML IVC PRN (15:45)
[2017-12-02] MEDS ORDERED: Insulin Human Regular 100 UNIT in 0.9 % Sodium Chloride 100 ML IV PRN (15:45)
[2017-12-02] MEDS ORDERED: Dextrose 50 % in Water (Vial) 30 ML, Sodium Bicarbonate 20 MEQ, Potassium Chloride 15 M... TH ONE (15:45)
[2017-12-02] MEDS ORDERED: *HR* LORazepam 0.5 MG TABLET PO PRN (16:53)
--- NOTE | 2017-12-02 16:57 | Internal Med Progress Note ---
Date of Encounter: 12/02/17 Time of Encounter: 09:55 - Assessment and plan (1) Chest pain Current Visit: Yes Status: Acute Assessment and plan: No prior history. Pt continues to deny chest pain. Abnormal stress yesterday. LHC showed double vessel CAD with left main disease, 50% stenosis distal LMCA, 90% stenosis in proximal LAD, 70% stenosis in the ramus, 20% stenosis proximal RCA, 70% in mid RCA. Pt to have CABG tomorrow. Continue ASA and telemetry. Qualifiers: Chest pain type: unspecified Qualified Code(s): R07.9 - Chest pain, unspecified (2) Hypertension Current Visit: Yes Status: Chronic Assessment and plan: Blood pressure well controlled. BB added. Well controlled. Recommend smoking cessation. Qualifiers: Hypertension type: essential hypertension Qualified Code(s): I10 - Essential (primary) hypertension (3) DVT prophylaxis Current Visit: Yes Status: Acute Assessment and plan: Heparin SQ BID. Encourage ambulation. (4) Abnormal stress test Current Visit: Yes Status: Acute Assessment and plan: Stress test abnormal, small sized, mild to moderate intensity stress perfusion defect involving the mid to distal inferior wall representing ischemia. There is also small sized, very mild intensity stress perfusion defect involving the mid anterior wall, cannot exclude ischemia. Gated EF 68%. [facility] as above. Pt to have CABG in the a.m. (5) Tobacco abuse Current Visit: Yes Status: Chronic Assessment and plan: Pt reports that he smokes approximately 1 PPD. He denies need or desire for nicotine replacement. - Time Spent With Patient Total time spent is greater than 50% in coordination of care (as documented) at patient's floor/unit and/or counseling patient: less than 15 minutes - Subjective Interval history: Pt was seen and assessed at bedside at 0955. Pt states that he is somewhat nervous about surgery tomorrow, will give Ativan 1 time dose at bedtime. Pt denies chest pain, n/v/d, abdominal pain, SOB, cough, fever, chills. He is aware of time of surgery tomorrow and denies questions. - Constitutional Vitals: Temp Pulse Resp BP Pulse Ox 98.0 F 44 20 159/96 97 12/02/17 15:16 12/02/17 15:16 12/02/17 15:16 12/02/17 15:16 12/02/17 15:16 General appearance: Present: cooperative, A&O X 3, pleasant, no acute distress, answers questions appropriately - Head Head exam: Present: atraumatic, normal inspection, normocephalic - Eye Eye exam: Present: normal appearance, conjuntiva pink, sclera anicteric - Neck Neck exam general surgery: Present: supple, trachea midline. Absent: lymphadenopathy, tenderness - Respiratory Respiratory exam: Present: CTAB. Absent: accessory muscle use, rales, respiratory distress, rhonchi, wheezes - Cardiovascular Cardiovascular exam: Present: RRR, +S1, +S2. Absent: diastolic murmur, gallop, rubs, systolic murmur - GI/Abdominal GI/Abdominal exam: Present: normal bowel sounds, soft. Absent: distended, hepatomegaly, tenderness - Extremities Exam Extremities exam: Present: normal capillary refill, normal inspection, warm, radial pulses palpable and symmetrical. Absent: calf tenderness, cyanotic, pedal edema, tenderness - Neurological Exam Neurological exam: Present: alert, oriented X3, no focal deficits. Absent: altered, facial droop, speech deficit - Skin Skin exam: Present: dry, intact, normal color, warm. Absent: rash Internal Medicine: Result - Labs CBC & Chem 7: 12/01/17 06:04 12/01/17 06:04 - ABG Interpretation ABG results: PT/INR, D-dimer PT 11.0 Seconds (9.4-12.1) 11/30/17 10:31 D-Dimer 291 ng/mLFEU (0-500) 11/30/17 10:31 Consult Discharge Plan - Plan Additional Instructions: Please take your new medications as directed. Follow up with your PCP and cardiology as scheduled. Return to the ER as needed for any other problems or concerns. Stop smoking, this a way to reduce your risk of further heart disease. Eat a low cholesterol, low fat diet to also help to reduce your risk Return to your normal activities as tolerated. Return to work after you are cleared by your PCP. Referrals: Isaias Thakkar MD [Primary Care Provider] - 12/07/17 10:15 am Prescriptions: Aspirin Enteric Coated [Aspirin EC] 81 mg PO DAILY #30 tablet. Metoprolol [Lopressor] 12.5 mg PO BID #60 tablet
[2017-12-02] MEDS: Chlorhexidine Rinse 15 ML MOUTHWASH MM SCH (21:08)
[2017-12-03] MEDS ORDERED: Insulin Human Regular 100 UNIT in 0.9 % Sodium Chloride 100 ML IV PRN (06:00)
[2017-12-03] MEDS ORDERED: Dextrose 50 % in Water (Vial) 30 ML, Sodium Bicarbonate 20 MEQ, Potassium Chloride 15 M... TH ONE (06:00)
[2017-12-03] MEDS ORDERED: Norepinephrine 4 MG in D5% in Water 250 ML IVC PRN (06:00)
[2017-12-03 06:01] LABS: Basophils % 0.5 %; Eosinophils # 0.2 K/mcL (0.0-0.6); Eosinophils % 1.9 %; Hematocrit 44.4 % (37.5-50.1); Hemoglobin 15.8 g/dL (12.9-16.9); Immature Granulocytes % 0.7 % (0-4); Immature Platelets 2.5 % (1.1-6.1); Lymphocytes % 23.8 %; Mean Corpuscular HGB Conc 35.6 g/dL (31.6-35.5); Mean Corpuscular Hemoglobin 30.7 pg (28.0-33.3); Mean Corpuscular Volume 86.4 fL (83.0-100.0); Mean Platelet Volume 9.3 fL (9.4-12.4); Monocytes # 0.7 K/mcL (0.0-1.3); Monocytes % 8.9 %; Neutrophils # 5.3 K/mcL (1.6-8.9); Platelet Count 223 K/mcL (140-400); Red Blood Count 5.14 M/mcL (4.19-5.50); Segmented Neutrophils % 64.2 %
[2017-12-03 06:26] LABS: BUN/Creatinine Ratio 16 (6-26); Blood Urea Nitrogen 12 mg/dL (6-20); Carbon Dioxide 22 mEq/L (23-29); Chloride 108 mEq/L (98-107); Glucose 100 mg/dL (70-105); Osmolality,Calculated 288 (280-300); Potassium 4.4 mEq/L (3.5-5.1); Sodium 139 mEq/L (136-145); eGFR For African Americans > 60 (> 60); eGFR For Non-African Americans > 60 (> 60)
[2017-12-03] MEDS ORDERED: *HR* PHENYLEPHRINE 1,000 MCG/10 ML SYRINGE IVP ONE (06:37)
[2017-12-03] MEDS ORDERED: *HR* Rocuronium Bromide 50 MG/5 ML VIAL ONE (06:37)
[2017-12-03] MEDS ORDERED: Famotidine 20 MG/2 ML VIAL ONE (06:38)
[2017-12-03] MEDS ORDERED: *HR* Etomidate 20 MG/10 ML AMPUL IVP ONE (06:38)
[2017-12-03] MEDS ORDERED: Protamine Sulfate 250 MG/25 ML VIAL IVP ONE (06:39)
[2017-12-03] MEDS ORDERED: Tranexamic Acid 1,000 MG/10 ML VIAL ONE ×2 (06:39→08:59)
[2017-12-03] MEDS ORDERED: *HR* FentaNYL (PF) 1,000 MCG/20 ML VIAL ONE (06:44)
[2017-12-03] MEDS ORDERED: *HR* Midazolam HCl 5 MG/5 ML VIAL IVP ONE (06:44)
[2017-12-03] MEDS ORDERED: Nitroglycerin 25 MG/250 ML INFUS..BTL IVC ONE ×2 (06:50→12:24)
[2017-12-03] MEDS ORDERED: NiCARdipine 2.5 MG/10 ML Syringe IVPB ONE (06:50)
[2017-12-03] MEDS ORDERED: CeFAZolin Syr 2,000MG/20 ML 2,000 MG/20 ML SYRINGE IVPB ONE (07:00)
[2017-12-03] MEDS ORDERED: Esmolol 100 MG/10 ML VIAL IVP ONE (08:07)
[2017-12-03 08:15] LABS: ABG Base Excess -2 mEq/L (-2 to 3); ABG Chloride 108 mEq/L (98-107); ABG Glucose 112 mg/dL (60-95); ABG HCO3 24 mEq/L (21-27); ABG Ionized Calcium 1.16 mmol/L (1.15-1.35); ABG Oxygen Saturation 100 % (95-98); ABG PCO2 44 mmHg (35-45); ABG PH 7.35 pH Units (7.32-7.45); ABG PO2 255 mmHg (85-104); ABG TCO2 26 mEq/L (20-26)
[2017-12-03] MEDS ORDERED: *HR* Metoprolol 5 MG/5 ML VIAL IVP ONE (08:38)
--- NOTE | 2017-12-03 09:07 | Anesthesia Procedures ---
Date of Encounter: 12/03/17 Time of Encounter: 07:50 Procedures: Anesthesia - Arterial Line Consent obtained: written consent Time out performed: Yes Sedation: Versed (mg): 3 Sedation: Fentanyl (mcg): 150 Supplemental Oxygen via Nasal Cannula (L/min): 2 Local Anesthetic: Lidocaine 1% Amount of Anesthetic used (mls): 3 Size (Gauge): 20 Length (inches): 5 Technique Used: sterile prep, guide wire technique, direct puncture technique Post-Procedure: line taped into place, dry sterile dressing placed Patient tolerated procedure: well, no complications (took [address] a- line. Able to hit artery, difficulty feeding wire) Complications: none Site: Radial L - Central Line Placement Right IJ Consent obtained: written consent Time out performed: Yes Patient placed on monitor/pulse ox: Yes prep: mask, gown, gloves Central line prep: Chlorhexidine scrub, sterile drapes applied Ultrasound used for placement: Yes Technique: Seldinger Lumen Inserted: Introducer Post procedure: sutured in place, good blood return, all ports aspirated, flushed, capped, sterile dressing applied Patient tolerated procedure: well, no complications Complications: none Comments: easy placement of introducer with one attempt. [place] floated without arrythmia, wedge approx 60cm
[2017-12-03 09:27] LABS: ABG Base Excess -5 mEq/L (-2 to 3); ABG Chloride 111 mEq/L (98-107); ABG Glucose 165 mg/dL (60-95); ABG HCO3 21 mEq/L (21-27); ABG Ionized Calcium 0.99 mmol/L (1.15-1.35); ABG Oxygen Saturation 98 % (95-98); ABG PCO2 43 mmHg (35-45); ABG PO2 106 mmHg (85-104); ABG TCO2 23 mEq/L (20-26)
[2017-12-03] MEDS ORDERED: Tranexamic Acid 1,000 MG/10 ML VIAL IVPB ONE (09:28)
[2017-12-03] MEDS ORDERED: *HR* Phenylephrine 10 MG/ML VIAL IVC ONE (09:28)
[2017-12-03] MEDS ORDERED: *HR* Magnesium Sulfate 2 GM/50 ML PIGGYBACK IVPB ONE (09:28)
[2017-12-03] MEDS ORDERED: Mannitol 25% vial 12.5 GM/50 ML VIAL IVP ONE (09:28)
[2017-12-03] MEDS ORDERED: *HR* Heparin 10,000 UNIT/10 ML VIAL IV ONE (09:28)
[2017-12-03] MEDS ORDERED: Lidocaine 2% Syringe 100 MG/5 ML IV ONE (09:28)
[2017-12-03] MEDS ORDERED: Albumin Human 25% 25 GM/100 ML IV.SOLN IV ONE (09:28)
[2017-12-03 09:54] LABS: ABG Base Excess -2 mEq/L (-2 to 3); ABG Chloride 103 mEq/L (98-107); ABG Glucose 214 mg/dL (60-95); ABG HCO3 25 mEq/L (21-27); ABG Ionized Calcium 1.05 mmol/L (1.15-1.35); ABG Oxygen Saturation 100 % (95-98); ABG PCO2 48 mmHg (35-45); ABG PH 7.32 pH Units (7.32-7.45); ABG PO2 515 mmHg (85-104); ABG TCO2 26 mEq/L (20-26)
[2017-12-03 10:29] LABS: ABG Base Excess -1 mEq/L (-2 to 3); ABG Chloride 104 mEq/L (98-107); ABG Glucose 196 mg/dL (60-95); ABG HCO3 24 mEq/L (21-27); ABG Ionized Calcium 1.08 mmol/L (1.15-1.35); ABG Oxygen Saturation 100 % (95-98); ABG PCO2 42 mmHg (35-45); ABG PH 7.37 pH Units (7.32-7.45); ABG PO2 486 mmHg (85-104); ABG TCO2 26 mEq/L (20-26)
[2017-12-03] MEDS ORDERED: Albumin Human 5% 50.0 GM/1,000 ML VIAL ONE (10:29)
[2017-12-03 10:45] LABS: ABG Base Excess -1 mEq/L (-2 to 3); ABG Chloride 104 mEq/L (98-107); ABG Glucose 167 mg/dL (60-95); ABG HCO3 24 mEq/L (21-27); ABG Ionized Calcium 1.06 mmol/L (1.15-1.35); ABG Oxygen Saturation 100 % (95-98); ABG PCO2 42 mmHg (35-45); ABG PH 7.37 pH Units (7.32-7.45); ABG PO2 399 mmHg (85-104); ABG TCO2 25 mEq/L (20-26)
[2017-12-03 11:10] LABS: ABG Base Excess -2 mEq/L (-2 to 3); ABG Chloride 107 mEq/L (98-107); ABG Glucose 134 mg/dL (60-95); ABG HCO3 25 mEq/L (21-27); ABG Ionized Calcium 1.32 mmol/L (1.15-1.35); ABG Oxygen Saturation 97 % (95-98); ABG PCO2 48 mmHg (35-45); ABG PH 7.32 pH Units (7.32-7.45); ABG PO2 94 mmHg (85-104); ABG TCO2 26 mEq/L (20-26)
[2017-12-03] MEDS ORDERED: Potassium Chloride 40 MEQ/200 ML BAG IVPB PRN (11:46)
[2017-12-03] MEDS ORDERED: Calcium Chloride 1,000 MG in 0.9 % Sodium Chloride 100 ML IVPB PRN (11:46)
[2017-12-03] MEDS ORDERED: Insulin Regular, Human 100 UNIT/ML IV PRN (11:46)
[2017-12-03] MEDS ORDERED: *HR* Dextrose 50 % in Water (Syg) 50 ML SYRINGE IVP PRN (11:46)
[2017-12-03] MEDS ORDERED: Acetaminophen 650 MG RECTAL SUPP RC PRN (11:46)
[2017-12-03] MEDS ORDERED: Ondansetron 4 MG/2 ML VIAL IVP PRN (11:46)
--- NOTE | 2017-12-03 11:46 | Operative Note ---
Date of procedure: 12/03/17 Pre-op diagnosis: CAD Post-op diagnosis: same Procedure: 1. CABG4 (SHEETS to LAD, sequential SVG to ramus intermediate branch then OM1, SVG to PDA). 2. Endoscopic vein harvesting, greater saphenous vein from right lower extremity. Implants: None. Complications: None. Anesthesia: LESLEY Surgeon: Ruddy Pelayo Was there an assistant surveyor present: Yes Warehouse Inventory Clerk: Joseph Dominique Estimated blood loss (cc): 500 Specimen: None. Condition: stable Disposition: ICU Procedure in Detail: INDICATIONS FOR OPERATION: The patient is a 47 year old hypertensive man with a strong family history of premature CAD. He was in his usual state of good health until earlier this week when he began experiencing substernal chest pressure, intrascapular pain, and left forearm tingling. The symptoms typically occurred with exertion and resolves spontaneously. He was evaluated at emergency department on 11/30/2017. Given his presenting symptoms, is cardiac risk profile, and the family history of premature CAD, he was admitted for further cardiac workup. The patient underwent a nuclear stress test which revealed an LVEF 60% and a small mild to moderate intensity perfusion defect in the inferior wall. Subsequent cardiac catheterization revealed severe 3 vessel CAD and an LVEF 60% . In particular, the patient has a 50% distal left main lesion, a 90% proximal LAD lesion, a 70% proximal ramus intermediate branch lesion, a 20% proximal RCA lesion, a 70% mid RCA lesion. He has been recommended for CABG. FINDINGS AT OPERATION: The aorta was of normal caliber without calcification. The coronary arteries measure approximately 2-3 mm in diameter and had mild distal disease. The greater saphenous vein was harvested endoscopically from the right lower extremity from the mid calf to the groin and was of quality. The total bypass time was 76 minutes, cross-clamp time 42 minutes, intentional hypothermia of 34.9 degrees centigrade. DESCRIPTION OF OPERATION: After obtaining informed operative consent from the patient, he was taken to the operating room where a satisfactory general endotracheal anesthetic was induced. Appropriate monitor lines were placed, the patient's chest, abdomen, and lower extremities were prepped and draped in a sterile fashion. The greater saphenous vein was harvested endoscopically from the right lower extremity from the mid calf to the groin. The vein was removed, distended, and found to be of good quality. The simultaneous tissue and skin edges were reapproximated using running Vicryl sutures. Simultaneously, a standard median sternotomy incision was made and the sternum divided. The SHEETS was taken down from its bed and side branches divided between hemoclips. The sternum was and the pericardium opened and reflected laterally. The patient was prepared for cannulation by placing pursestring sutures the distal ascending aorta, mid-ascending aorta, and right atrial appendage. The patient was heparinized and the ACT was greater than 200 seconds, the distal ascending aorta was cannulated followed by placement of dual stage venous cannula through the right atrial appendage and into the inferior vena cava. A stab-in antegrade metabolic and is placed in the mid- ascending aorta. The patient was placed on bypass and the temperature allowed to drift to 34.9 degrees centigrade. The distal targets were identified and the aorta was crossclamped. The patient received 700 mL of cold antegrade styloid cardioplegia through the aortic root and the patient's heart obtained rapid diastolic arrest. The PDA was opened be blade and the vein was anastomosed in an end-to-side fashion using running 7-0 Prolene suture. The anastomosis found to be hemostatic. This processes and repeated for the OM1 branch which was intramyocardial. The myocardium was divided and the vessel opened. The vein was anastomosed in an end-to-side fashion using running 7-0 Prolene suture. The anastomosis was found to be hemostatic. The ramus intermediate branch was then opened be blade and the vein was opened longitudinal fashion so the side-to -side anastomosis could be completed using running 7-0 Prolene suture. The anastomosis found to be hemostatic and the patient is a final dose of cold antegrade crystalloid cardioplegia through the aortic root. The LAD was opened with a [place] blade and the SHEETS was anastomosed in an end-to-side fashion to the LAD using running 7-0 Prolene suture. The anastomosis found to be hemostatic and the mammary pedicle was tacked to the epicardium using interrupted 5-0 silk suture. Rewarming was begun during this anastomosis. The aortic cross-clamp was released and the heart distended. The veins were measured and cut appropriate lengths. A partial occluding clamps placed across the mid ascending aorta and the antegrade cardiac plegia cannulas removed. An additional aortotomy site was then made 11 blade and both sites were enlarged with 4 mm punch. The veins were anastomosed in an end-to-side fashion to the aorta using a running 5-0 Prolene suture. The vein grafts were occluded with bulldog clamps and de-aired the 25-gauge needle prior to removing the partial occluding clamp. The proximal and distal anastomoses were found to be hemostatic and the proximal anastomoses were marked with radiopaque loops. Two right ventricular temporary epicardial pacing lesion placed, and 3 chest tubes were placed, 2 in the mediastinum and one into the left pleural space. During rewarming the patient's heart regained normal sinus rhythm spontaneously. When the patient's systemic temperature reached 36 degrees centigrade, he was ventilated and received volume. He was weaned from bypass required no inotropic support. Remain was administered and the aortic and venous cannulae were removed. The pursestring sutures were secured and the venous cannulation site was reinforced with a running 4-0 Prolene suture. The pericardium was loosely approximated in midline using interrupted 0 silk suture and the sternum was reapproximated using doubled wires. The pectoralis major fascia, rectus abdominis fascia, simultaneous tissue, and skin edges were reapproximated running Vicryl sutures. Sterile dressings were applied. The patient was transferred to the ICU in satisfactory postoperative condition. There were no intraoperative complications, and the instrument, needle, and sponge count were corrected and of operation. - Open Heart Detail AMIRAH (Internal Mammary Artery) Usage: Yes Cardiopulmonary Bypass Time (mins): 76 Aortic Cross Clamp Time (mins): 42 Intentional Hypothermia Temperature (C.): 34.9
[2017-12-03 12:16] LABS: ABG Base Excess -2 mEq/L (-2 to 3); ABG HCO3 25 mEq/L (21-27); ABG Oxygen Saturation 92 % (95-98); ABG PCO2 52 mmHg (35-45); ABG PH 7.29 pH Units (7.32-7.45); ABG PO2 73 mmHg (85-104); ABG TCO2 27 mEq/L (20-26); Blood Gas PEEP 5 cm H2O; Blood Gas Respiration Rate 10; Blood Gas VT 700 cc
[2017-12-03 12:25] LABS: Basophils # 0.1 K/mcL (0.0-0.2); Basophils % 0.3 %; Eosinophils # 0.2 K/mcL (0.0-0.6); Hematocrit 37.7 % (37.5-50.1); Immature Granulocytes % 0.7 % (0-4); Lymphocytes # 2.6 K/mcL (0.6-4.6); Lymphocytes % 13.1 %; Mean Corpuscular HGB Conc 36.3 g/dL (31.6-35.5); Mean Corpuscular Hemoglobin 31.8 pg (28.0-33.3); Mean Corpuscular Volume 87.5 fL (83.0-100.0); Mean Platelet Volume 8.9 fL (9.4-12.4); Monocytes # 1.4 K/mcL (0.0-1.3); Monocytes % 7.2 %; Platelet Count 155 K/mcL (140-400); Red Blood Count 4.31 M/mcL (4.19-5.50); Segmented Neutrophils % 77.7 %
[2017-12-03 12:27] LABS: Hemoglobin 13.7 g/dL (12.9-16.9); Neutrophils # 15.5 K/mcL (1.6-8.9)
[2017-12-03 12:32] LABS: INR 1.5
[2017-12-03 12:35] LABS: Activated Partial Thrombo Time 31.2 Seconds (26.0-36.0)
[2017-12-03 12:36] LABS: Prothrombin Time 16.6 Seconds (9.4-12.1)
[2017-12-03] MEDS: *HR* FentaNYL (PF) 100 MCG/2 ML VIAL IVP PRN ×3 (12:44→21:00)
[2017-12-03 12:47] LABS: BUN/Creatinine Ratio 15 (6-26); Blood Urea Nitrogen 10 mg/dL (6-20); Calcium 8.2 mg/dL (8.6-10.3); Carbon Dioxide 27 mEq/L (23-29); Chloride 109 mEq/L (98-107); Glucose 138 mg/dL (70-105); Magnesium 2.3 mg/dL (1.6-2.6); Osmolality,Calculated 287 (280-300); Sodium 138 mEq/L (136-145); eGFR For African Americans > 60 (> 60); eGFR For Non-African Americans > 60 (> 60)
[2017-12-03] MEDS: 0.9 % Sodium Chloride w KCl 20 MEQ/1,000 ML MLS IVC SCH (13:01)
[2017-12-03] MEDS: Pantoprazole 40 MG VIAL IVP SCH (13:02)
[2017-12-03] MEDS: Ketorolac 15 MG/ML VIAL IVP SCH ×3 (13:03→23:51)
[2017-12-03] MEDS: Metoclopramide 10 MG/2 ML VIAL IVP SCH ×3 (13:04→23:52)
[2017-12-03] MEDS: *HR* Heparin 5,000 UNIT/ML VIAL SQ SCH ×2 (13:39→17:40)
[2017-12-03] MEDS: Nitroglycerin 25 MG/250 ML INFUS..BTL IVC SCH ×2 (13:41→19:50)
[2017-12-03] MEDS: *HR* OxyCODONE/APAP 5/325 TABLET PO PRN ×3 (14:12→23:52)
--- NOTE | 2017-12-03 15:53 | Event Note ---
Date of Encounter: 12/03/17 Time of Encounter: 07:20 Pt was taken to surgery prior to 0700. I was unable to evaluate pt prior to him leaving the unit.
[2017-12-03 16:09] LABS: ABG Base Excess -1 mEq/L (-2 to 3); ABG HCO3 24 mEq/L (21-27); ABG Oxygen Saturation 96 % (95-98); ABG PCO2 41 mmHg (35-45); ABG PH 7.37 pH Units (7.32-7.45); ABG PO2 84 mmHg (85-104); ABG TCO2 25 mEq/L (20-26)
[2017-12-03 16:27] LABS: Basophils # 0.1 K/mcL (0.0-0.2); Basophils % 0.2 %; Eosinophils % 0.1 %; Hematocrit 38.7 % (37.5-50.1); Hemoglobin 14.5 g/dL (12.9-16.9); Immature Granulocytes % 0.9 % (0-4); Lymphocytes # 1.1 K/mcL (0.6-4.6); Lymphocytes % 4.6 %; Mean Corpuscular Hemoglobin 32.4 pg (28.0-33.3); Mean Corpuscular Volume 86.6 fL (83.0-100.0); Mean Platelet Volume 9.4 fL (9.4-12.4); Monocytes # 2.2 K/mcL (0.0-1.3); Monocytes % 9.4 %; Neutrophils # 19.9 K/mcL (1.6-8.9); Platelet Count 186 K/mcL (140-400); Red Blood Count 4.47 M/mcL (4.19-5.50); Segmented Neutrophils % 84.8 %
[2017-12-03 16:28] LABS: Mean Corpuscular HGB Conc 37.5 g/dL (31.6-35.5)
[2017-12-03 16:34] LABS: INR 1.3
[2017-12-03 16:37] LABS: Activated Partial Thrombo Time 28.9 Seconds (26.0-36.0)
[2017-12-03 17:16] LABS: BUN/Creatinine Ratio 12 (6-26); Blood Urea Nitrogen 10 mg/dL (6-20); Calcium 8.3 mg/dL (8.6-10.3); Carbon Dioxide 24 mEq/L (23-29); Chloride 107 mEq/L (98-107); Glucose 157 mg/dL (70-105); Osmolality,Calculated 286 (280-300); Potassium 4.6 mEq/L (3.5-5.1); Sodium 137 mEq/L (136-145); eGFR For African Americans > 60 (> 60); eGFR For Non-African Americans > 60 (> 60)
[2017-12-03] MEDS: CeFAZolin Pre 2,000 MG/100 ML 2,000 MG/100 ML BAG IVPB SCH ×2 (17:20→23:51)
[2017-12-03] MEDS: Chlorhexidine Rinse 15 ML MOUTHWASH MM SCH ×2 (17:21→20:02)
[2017-12-03] MEDS: Dextrose 50 % in Water (Vial) 30 ML, Sodium Bicarbonate 20 MEQ, Lidocaine 1% 5 ML, Insu... TH SCH (17:21)
[2017-12-03] MEDS: Heparin 15,000 UNIT in 0.9 % Sodium Chloride 500 ML IV SCH (17:21)
[2017-12-03 17:53] LABS: Magnesium 1.8 mg/dL (1.6-2.6)
[2017-12-03] MEDS: Norepinephrine 4 MG in D5% in Water 250 ML IVC SCH (19:19)
[2017-12-03] MEDS: niCARdipine 40 MG/200 ML MLS IVC SCH ×2 (19:19→19:20)
[2017-12-03] MEDS: Furosemide 20 MG/2 ML VIAL IVP SCH (20:01)
[2017-12-03] MEDS: Insulin Human Regular 100 UNIT in 0.9 % Sodium Chloride 100 ML IVC SCH (20:01)
[2017-12-04] MEDS: niCARdipine 40 MG/200 ML MLS IVC SCH ×5 (02:32→14:21)
[2017-12-04] MEDS: *HR* FentaNYL (PF) 100 MCG/2 ML VIAL IVP PRN ×4 (02:32→19:47)
[2017-12-04] MEDS: Nitroglycerin 25 MG/250 ML INFUS..BTL IVC SCH ×3 (03:47→19:46)
[2017-12-04] MEDS: *HR* OxyCODONE/APAP 5/325 TABLET PO PRN ×3 (03:54→15:18)
[2017-12-04] MEDS: Heparin 15,000 UNIT in 0.9 % Sodium Chloride 500 ML IV SCH (04:17)
[2017-12-04] MEDS: Dextrose 50 % in Water (Vial) 30 ML, Sodium Bicarbonate 20 MEQ, Lidocaine 1% 5 ML, Insu... TH SCH (04:17)
[2017-12-04 04:18] LABS: Basophils % 0.1 %; Hematocrit 37.5 % (37.5-50.1); Hemoglobin 13.4 g/dL (12.9-16.9); Immature Granulocytes % 0.3 % (0-4); Lymphocytes % 6.9 %; Mean Corpuscular HGB Conc 35.7 g/dL (31.6-35.5); Mean Corpuscular Hemoglobin 30.7 pg (28.0-33.3); Mean Platelet Volume 9.3 fL (9.4-12.4); Monocytes # 1.1 K/mcL (0.0-1.3); Monocytes % 7.6 %; Neutrophils # 12.3 K/mcL (1.6-8.9); Platelet Count 166 K/mcL (140-400); Red Blood Count 4.36 M/mcL (4.19-5.50); Red Cell Distribution Width 11.9 % (11.5-14.5); Segmented Neutrophils % 85.1 %
[2017-12-04 04:26] LABS: INR 1.3
[2017-12-04 04:31] LABS: BUN/Creatinine Ratio 14 (6-26); Blood Urea Nitrogen 10 mg/dL (6-20); Calcium 8.4 mg/dL (8.6-10.3); Carbon Dioxide 24 mEq/L (23-29); Chloride 105 mEq/L (98-107); Glucose 145 mg/dL (70-105); Magnesium 1.9 mg/dL (1.6-2.6); Osmolality,Calculated 282 (280-300); Potassium 4.2 mEq/L (3.5-5.1); Sodium 135 mEq/L (136-145); eGFR For African Americans > 60 (> 60); eGFR For Non-African Americans > 60 (> 60)
[2017-12-04 04:36] LABS: Activated Partial Thrombo Time 28.6 Seconds (26.0-36.0)
[2017-12-04 04:42] LABS: Prothrombin Time 14.1 Seconds (9.4-12.1)
[2017-12-04] MEDS: *HR* Heparin 5,000 UNIT/ML VIAL SQ SCH ×2 (06:08→17:19)
[2017-12-04] MEDS: Metoclopramide 10 MG/2 ML VIAL IVP SCH ×3 (06:08→17:16)
[2017-12-04] MEDS: Ketorolac 15 MG/ML VIAL IVP SCH ×3 (06:08→17:16)
[2017-12-04] MEDS: 0.9 % Sodium Chloride w KCl 20 MEQ/1,000 ML MLS IVC SCH (07:43)
--- NOTE | 2017-12-04 08:22 | Anesthesia Evaluation Post Op ---
Date of Encounter: 12/04/17 Time of Encounter: 07:45 - Vital Signs Vital Signs: Selected Entries 12/04/17 07:00 Temperature 98.3 F Pulse Rate 112 Respiratory Rate 18 Blood Pressure 153/71 O2 Sat by Pulse Oximetry 91 Oxygen Flow Rate (LPM) 10 Oxygen Delivery Method High Flow Nasal Cannula - Lungs Lungs: Clear Ascult./Percussion - Airway Airway: Non-obstructed - Cardiovascular Regular Rate - Mental Status Mental Status: Alert & Oriented, Answers Appropriately - Pain Pain Scale: 5 Pain Scale used: Numeric (1 - 10) - Nausea Vomiting Nausea Vomiting: Not Present - Hydration Hydration: Tolerates oral liquids, Graham catheter Notes: 12/04/17 08:20 POD#1 CABG. C/O pain at chest tube sites. BP good, still tachycardic. Minimal CT drainage. No apparent anesthesia complications. Disposition per CT surgery
[2017-12-04] MEDS: Furosemide 20 MG/2 ML VIAL IVP SCH ×2 (08:27→19:47)
[2017-12-04] MEDS: Chlorhexidine Rinse 15 ML MOUTHWASH MM SCH ×2 (08:28→19:46)
[2017-12-04] MEDS: Pantoprazole 40 MG VIAL IVP SCH (08:28)
--- NOTE | 2017-12-04 08:58 | Cardiothoracic Progress Note ---
Date of Encounter: 12/04/17 Time of Encounter: 08:55 - Assessment and plan (1) CAD (coronary artery disease) Current Visit: Yes Status: Acute The patient is recovering well from his CABG4. He remained hemodynamically stable overnight. He is currently extubated and breathing comfortably, though he is requiring high flow oxygen to maintain adequate saturations. He has no complaints. His medications will be adjusted. He was encouraged to continue with aggressive pulmonary toilet and the use of his incentive spirometry. The Graham catheter will be removed. The patient will be monitored in the ICU today The assessment and plan as outlined above was discussed with the patient and/or family members who expressed understanding and agreement. All questions were answered. Qualifiers: Coronary Disease-Associated Artery/Lesion type: [place] artery [place] vs. transplanted heart: [place] heart Associated angina: with unstable angina Qualified Code(s): I25.110 - Atherosclerotic heart disease of [place] coronary artery with unstable angina pectoris - Subjective Procedure(s) Performed: POD#1 S/P CABG4 Interval history: The patient remained hemodynamically stable overnight. He is extubated and breathing comfortably. He has no complaints. Vital Signs, Last 4 Hours Temp Pulse Resp BP Pulse Ox 12/04/17 08:29 18 91 12/04/17 08:00 113 18 151/72 91 12/04/17 07:32 109 12/04/17 07:00 98.3 F 112 18 153/71 91 12/04/17 06:00 98.3 F 112 16 137/68 90 12/04/17 05:00 98 F 95 16 146/70 93 Oxgyen Flow Rate Oxygen Flow Rate (LPM) 10 Clinical Data, last 8 Hours Output, Chest Tube Drainage 10 Amount [Mediastinal #2] Output, Chest Tube Drainage 5 Amount [Mediastinal #2] Output, Chest Tube Drainage 6 Amount [Mediastinal #2] Output, Chest Tube Drainage 6 Amount [Mediastinal #2] Output, Chest Tube Drainage 10 Amount [Mediastinal #2] Output, Chest Tube Drainage 4 Amount [Mediastinal #2] Output, Chest Tube Drainage 6 Amount [Mediastinal #2] Output, Chest Tube Drainage 7 Amount [Mediastinal #2] Output, Chest Tube Drainage 10 Amount [Mediastinal #1] Output, Chest Tube Drainage 10 Amount [Mediastinal #1] Output, Chest Tube Drainage 10 Amount [Mediastinal #1] Output, Chest Tube Drainage 15 Amount [Mediastinal #1] Output, Chest Tube Drainage 25 Amount [Mediastinal #1] Output, Chest Tube Drainage 20 Amount [Mediastinal #1] Output, Chest Tube Drainage 15 Amount [Mediastinal #1] Output, Chest Tube Drainage 17 Amount [Mediastinal #1] - Physical Examination General: Conversant, No Apparent Distress Neck: No JVD, Normal carotid pulses Cardiac: Reg Rate and Rhythm, Normal S1 and S2, No Murmur Incision: No signs of infection, Dry/intact dressing Sternum: Stable Chest tubes: Minimal drainage, Other (No air leak) Pacing Wires: In place Lungs: Normal Breath Sounds, No Wheeze, Rales, Rhonchi Neuro: Alert and responsive, No focal deficits noted Vascular: Normal capillary refill Extremities: No Clubbing, No Cyanosis, No Edema, Normal Pulses - Labs 12/04/17 04:00 12/04/17 04:00 Lab Results, Last 24 hours 12/03/17 12/03/17 12/03/17 15:50 15:50 15:50 WBC 23.5 H Hgb 14.5 Hct 38.7 Plt Count 186 INR 1.3 APTT 28.9 Sodium 137 Potassium 4.6 Chloride 107 Carbon Dioxide 24 BUN 10 Creatinine 0.82 Glucose 157 H Calcium 8.3 L Magnesium 1.8 12/04/17 12/04/17 12/04/17 04:00 04:00 04:00 WBC 14.4 H Hgb 13.4 Hct 37.5 Plt Count 166 INR 1.3 APTT 28.6 Sodium 135 L Potassium 4.2 Chloride 105 Carbon Dioxide 24 BUN 10 Creatinine 0.72 Glucose 145 H Calcium 8.4 L Magnesium 1.9 - Imaging Chest Xray: image reviewed (No pneumothorax. Bibasilar atelectasis.) - VTE Reasons for not Prescribing Prophylaxis: Not indicated-Anticoagulated or INR therapeutic Documentation of Mechanical Device: Graduated compression elastic hosiery Consult Discharge Plan - Plan Additional Instructions: Please take your new medications as directed. Follow up with your PCP and cardiology as scheduled. Return to the ER as needed for any other problems or concerns. Stop smoking, this a way to reduce your risk of further heart disease. Eat a low cholesterol, low fat diet to also help to reduce your risk Return to your normal activities as tolerated. Return to work after you are cleared by your PCP. Referrals: Isaias Thakkar MD [Primary Care Provider] - 12/07/17 10:15 am
[2017-12-04] MEDS ORDERED: Aspirin Enteric Coated 81 MG Tablet PO SCH (09:00)
[2017-12-04] MEDS ORDERED: *HR* Dextrose 50 % in Water (Syg) 50 ML SYRINGE IVP PRN (09:11)
[2017-12-04] MEDS ORDERED: D5% in Water 1,000 ML IVC PRN (09:11)
[2017-12-04] MEDS ORDERED: Dextrose Gel 15 GM/37.5 ML TUBE PO PRN ×2 (09:11)
[2017-12-04] MEDS: Insulin LISPRO 300 UNITS/3 ML VIAL SQ SCH ×2 (12:32→17:16)
[2017-12-04] MEDS: Insulin Human Regular 100 UNIT in 0.9 % Sodium Chloride 100 ML IVC SCH (12:50)
[2017-12-04] MEDS: Norepinephrine 4 MG in D5% in Water 250 ML IVC SCH (12:50)
[2017-12-04] MEDS ORDERED: 0.9 % Sodium Chloride 250 ML ONE (19:32)
[2017-12-04] MEDS ORDERED: Insulin LISPRO 300 UNITS/3 ML VIAL SQ SCH (21:00)
[2017-12-05] MEDS: *HR* OxyCODONE/APAP 5/325 TABLET PO PRN ×4 (00:14→20:50)
[2017-12-05] MEDS: Ketorolac 15 MG/ML VIAL IVP SCH ×5 (00:14→23:59)
[2017-12-05] MEDS: Metoclopramide 10 MG/2 ML VIAL IVP SCH ×5 (00:14→23:59)
[2017-12-05] MEDS: 0.9 % Sodium Chloride w KCl 20 MEQ/1,000 ML MLS IVC SCH (05:06)
[2017-12-05] MEDS: *HR* Heparin 5,000 UNIT/ML VIAL SQ SCH ×2 (05:09→18:03)
[2017-12-05 05:30] LABS: BUN/Creatinine Ratio 25 (6-26); Blood Urea Nitrogen 16 mg/dL (6-20); Calcium 8.4 mg/dL (8.6-10.3); Carbon Dioxide 25 mEq/L (23-29); Chloride 104 mEq/L (98-107); Glucose 125 mg/dL (70-105); Osmolality,Calculated 279 (280-300); Sodium 133 mEq/L (136-145); eGFR For African Americans > 60 (> 60); eGFR For Non-African Americans > 60 (> 60)
--- NOTE | 2017-12-05 07:09 | Cardiothoracic Progress Note ---
Date of Encounter: 12/05/17 Time of Encounter: 07:07 - Assessment and plan (1) CAD (coronary artery disease) Current Visit: Yes Status: Acute The patient is recovering well from his CABG4. He remained hemodynamically stable overnight. The arterial line and [place] catheter be removed. His beta jairon will be increased to help manage his with pressure. The supplemental oxygen is being weaned, and the patient is able to maintain O2 saturation greater than 92% on the lower (4-6 L/m via nasal cannula) oxygen needs he will be transferred to the stepdown unit later today. The assessment and plan as outlined above was discussed with the patient and/or family members who expressed understanding and agreement. All questions were answered. Qualifiers: Coronary Disease-Associated Artery/Lesion type: [place] artery [place] vs. transplanted heart: [place] heart Associated angina: with unstable angina Qualified Code(s): I25.110 - Atherosclerotic heart disease of [place] coronary artery with unstable angina pectoris - Subjective Procedure(s) Performed: POD#2 S/P CABG4 Interval history: The patient remained hemodynamically stable overnight. He is breathing comfortably. He has no complaints. Vital Signs, Last 4 Hours Temp Pulse Resp BP Pulse Ox 12/05/17 06:00 79 14 139/70 97 12/05/17 05:00 66 14 126/61 97 12/05/17 04:30 65 12/05/17 04:00 97.9 F 65 16 123/61 98 Oxgyen Flow Rate Oxygen Flow Rate (LPM) 10 Clinical Data, last 8 Hours Output, Chest Tube Drainage 10 Amount [Mediastinal #2] Output, Chest Tube Drainage 20 Amount [Mediastinal #2] Output, Chest Tube Drainage 10 Amount [Mediastinal #1] Output, Chest Tube Drainage 25 Amount [Mediastinal #1] Output, Urine Amount 550 Output, Urine Amount 0 Output, Urine Amount 350 Output, Urine Amount 0 Weight 12/03/17 12/04/17 12/05/17 23:59 23:59 23:59 Weight 106.4 kg - Physical Examination General: Conversant, No Apparent Distress Neck: No JVD, Normal carotid pulses Cardiac: Reg Rate and Rhythm, Normal S1 and S2, No Murmur Incision: No signs of infection, Dry/intact dressing Sternum: Stable Chest tubes: Minimal drainage, Other (No air leak) Lungs: Normal Breath Sounds, No Wheeze, Rales, Rhonchi Neuro: Alert and responsive, No focal deficits noted Vascular: Normal capillary refill Extremities: No Clubbing, No Cyanosis, No Edema, Normal Pulses - Labs 12/04/17 04:00 12/05/17 04:00 Lab Results, Last 24 hours 12/05/17 04:00 Sodium 133 L Potassium 4.0 Chloride 104 Carbon Dioxide 25 BUN 16 Creatinine 0.63 L Glucose 125 H Calcium 8.4 L - Imaging Chest Xray: image reviewed (No pneumothorax. Minimal bibasilar atelectasis/ infiltrates.) - VTE Reasons for not Prescribing Prophylaxis: Not indicated-Anticoagulated or INR therapeutic Documentation of Mechanical Device: Graduated compression elastic hosiery Consult Discharge Plan - Plan Additional Instructions: Please take your new medications as directed. Follow up with your PCP and cardiology as scheduled. Return to the ER as needed for any other problems or concerns. Stop smoking, this a way to reduce your risk of further heart disease. Eat a low cholesterol, low fat diet to also help to reduce your risk Return to your normal activities as tolerated. Return to work after you are cleared by your PCP. Referrals: Isaias Thakkar MD [Primary Care Provider] - 12/07/17 10:15 am
[2017-12-05] MEDS ORDERED: Nitroglycerin 0.4 MG TAB.SUBL SL PRN (07:33)
[2017-12-05] MEDS ORDERED: Acetaminophen 325 MG TABLET PO PRN (07:33)
[2017-12-05] MEDS ORDERED: *HR* LORazepam 0.5 MG TABLET PO PRN (07:33)
[2017-12-05] MEDS ORDERED: Naloxone 0.4 MG/ML INJ IVP PRN (07:33)
[2017-12-05] MEDS ORDERED: traMADol 50 MG TABLET PO PRN (07:33)
[2017-12-05] MEDS ORDERED: Ondansetron 4 MG/2 ML VIAL IVP PRN (07:33)
[2017-12-05] MEDS ORDERED: Insulin Regular, Human 100 UNIT/ML IV PRN (07:33)
[2017-12-05] MEDS ORDERED: *HR* Dextrose 50 % in Water (Syg) 50 ML SYRINGE IVP PRN (07:33)
[2017-12-05] MEDS ORDERED: Dextrose Gel 15 GM/37.5 ML TUBE PO PRN ×2 (07:33)
[2017-12-05] MEDS ORDERED: D5% in Water 1,000 ML IVC PRN (07:33)
[2017-12-05 07:54] LABS: Basophils % 0.2 %; Eosinophils % 0.3 %; Hemoglobin 10.7 g/dL (12.9-16.9); Immature Granulocytes % 0.3 % (0-4); Immature Platelets 3.7 % (1.1-6.1); Lymphocytes # 2.3 K/mcL (0.6-4.6); Lymphocytes % 18.8 %; Mean Corpuscular HGB Conc 34.5 g/dL (31.6-35.5); Mean Corpuscular Hemoglobin 30.6 pg (28.0-33.3); Mean Corpuscular Volume 88.6 fL (83.0-100.0); Mean Platelet Volume 9.7 fL (9.4-12.4); Monocytes # 1.2 K/mcL (0.0-1.3); Neutrophils # 8.7 K/mcL (1.6-8.9); Platelet Count 140 K/mcL (140-400); Red Cell Distribution Width 12.4 % (11.5-14.5); Segmented Neutrophils % 70.4 %
[2017-12-05] MEDS: Aspirin Enteric Coated 81 MG Tablet PO SCH (07:54)
[2017-12-05] MEDS: Chlorhexidine Rinse 15 ML MOUTHWASH MM SCH ×2 (07:55→20:49)
[2017-12-05] MEDS: Furosemide 20 MG/2 ML VIAL IVP SCH ×2 (07:55→20:49)
[2017-12-05] MEDS: Pantoprazole 40 MG VIAL IVP SCH (07:55)
[2017-12-05] MEDS: Nitroglycerin 25 MG/250 ML INFUS..BTL IVC SCH ×3 (08:32→21:04)
[2017-12-05] MEDS: Insulin LISPRO 300 UNITS/3 ML VIAL SQ SCH ×3 (11:48→20:49)
--- NOTE | 2017-12-05 13:33 | Electrocardiograph Report ---
[address] [place], [place] [address] Test Date: 2017-12-03 Pat Name: Andrea Conklin Department: 109 Room: [facility] Gender: M Agile Tester: NAINA : 1970 Requested By: Gabrielle Pelayo Order Number: [id number] Reading MD: Sriram Lora Measurements Intervals [place] Rate: 129 P: 52 [place]: 142 QRS: 46 QRSD: 109 T: 39 QT: 320 QTc: 396 Interpretive Statements SINUS TACHYCARDIA INCOMPLETE RIGHT BUNDLE BRANCH BLOCK Poor R wave progression Electronically Signed On 12-05-2017 13:32:04 EDT by Sriram Lora
[2017-12-06] MEDS: *HR* OxyCODONE/APAP 5/325 TABLET PO PRN ×3 (03:58→18:50)
[2017-12-06 04:14] LABS: Basophils % 0.3 %; Eosinophils % 0.4 %; Hematocrit 28.1 % (37.5-50.1); Hemoglobin 10.2 g/dL (12.9-16.9); Immature Granulocytes % 0.5 % (0-4); Lymphocytes # 2.2 K/mcL (0.6-4.6); Lymphocytes % 28.3 %; Mean Corpuscular HGB Conc 36.3 g/dL (31.6-35.5); Mean Corpuscular Hemoglobin 31.9 pg (28.0-33.3); Mean Corpuscular Volume 87.8 fL (83.0-100.0); Mean Platelet Volume 9.7 fL (9.4-12.4); Monocytes # 0.8 K/mcL (0.0-1.3); Monocytes % 10.1 %; Neutrophils # 4.6 K/mcL (1.6-8.9); Platelet Count 130 K/mcL (140-400); Red Cell Distribution Width 12.1 % (11.5-14.5); Segmented Neutrophils % 60.4 %
[2017-12-06 05:07] LABS: BUN/Creatinine Ratio 25 (6-26); Blood Urea Nitrogen 17 mg/dL (6-20); Calcium 8.5 mg/dL (8.6-10.3); Carbon Dioxide 27 mEq/L (23-29); Chloride 103 mEq/L (98-107); Glucose 106 mg/dL (70-105); Osmolality,Calculated 282 (280-300); Potassium 3.9 mEq/L (3.5-5.1); Sodium 135 mEq/L (136-145); eGFR For African Americans > 60 (> 60); eGFR For Non-African Americans > 60 (> 60)
[2017-12-06] MEDS: *HR* Heparin 5,000 UNIT/ML VIAL SQ SCH ×2 (06:13→17:43)
[2017-12-06] MEDS: Metoclopramide 10 MG/2 ML VIAL IVP SCH ×2 (06:13→11:45)
[2017-12-06] MEDS: Ketorolac 15 MG/ML VIAL IVP SCH ×3 (06:13→17:42)
--- NOTE | 2017-12-06 07:46 | Cardiothoracic Progress Note ---
Date of Encounter: 12/06/17 Time of Encounter: 07:45 - Assessment and plan (1) CAD (coronary artery disease) Current Visit: Yes Status: Acute The patient is recovering well from his CABG4. He remained hemodynamically stable overnight. He will be transferred to the stepdown unit when a bed is available. The assessment and plan as outlined above was discussed with the patient and/or family members who expressed understanding and agreement. All questions were answered. Qualifiers: Coronary Disease-Associated Artery/Lesion type: [place] artery [place] vs. transplanted heart: [place] heart Associated angina: with unstable angina Qualified Code(s): I25.110 - Atherosclerotic heart disease of [place] coronary artery with unstable angina pectoris - Subjective Procedure(s) Performed: POD#3 S/P CABG4 Interval history: The patient remained hemodynamically stable overnight. He is breathing comfortably. He has no complaints. Vital Signs, Last 4 Hours Temp Pulse Resp BP Pulse Ox 12/06/17 04:00 64 22 133/82 94 12/06/17 03:47 98.5 F Oxgyen Flow Rate Oxygen Flow Rate (LPM) 2 Clinical Data, last 8 Hours Output, Urine Amount 550 Output, Urine Amount 0 Weight 12/04/17 12/05/17 12/06/17 23:59 23:59 23:59 Weight 106.4 kg 106.2 kg - Physical Examination General: Conversant, No Apparent Distress Neck: No JVD, Normal carotid pulses Cardiac: Reg Rate and Rhythm, Normal S1 and S2, No Murmur Incision: No signs of infection, Dry/intact dressing Sternum: Stable Pacing Wires: In place Lungs: Normal Breath Sounds, No Wheeze, Rales, Rhonchi Neuro: Alert and responsive, No focal deficits noted Vascular: Normal capillary refill Extremities: No Clubbing, No Cyanosis, No Edema, Normal Pulses - Labs 12/06/17 03:50 12/06/17 03:50 Lab Results, Last 24 hours 12/05/17 12/06/17 12/06/17 04:00 03:50 03:50 WBC 12.4 H 7.7 Hgb 10.7 L D 10.2 L Hct 31.0 L 28.1 L Plt Count 140 130 L Sodium 135 L Potassium 3.9 Chloride 103 Carbon Dioxide 27 BUN 17 Creatinine 0.68 L Glucose 106 H Calcium 8.5 L - VTE Reasons for not Prescribing Prophylaxis: Not indicated-Anticoagulated or INR therapeutic Documentation of Mechanical Device: Graduated compression elastic hosiery Consult Discharge Plan - Plan Additional Instructions: Please take your new medications as directed. Follow up with your PCP and cardiology as scheduled. Return to the ER as needed for any other problems or concerns. Stop smoking, this a way to reduce your risk of further heart disease. Eat a low cholesterol, low fat diet to also help to reduce your risk Return to your normal activities as tolerated. Return to work after you are cleared by your PCP. Referrals: Isaias Thakkar MD [Primary Care Provider] - 12/07/17 10:15 am
[2017-12-06] MEDS: Nitroglycerin 25 MG/250 ML INFUS..BTL IVC SCH ×3 (07:49→20:16)
[2017-12-06] MEDS: Insulin LISPRO 300 UNITS/3 ML VIAL SQ SCH ×4 (07:50→20:18)
[2017-12-06] MEDS: Pantoprazole 40 MG VIAL IVP SCH (08:50)
[2017-12-06] MEDS: Furosemide 20 MG/2 ML VIAL IVP SCH (08:51)
[2017-12-06] MEDS: Aspirin Enteric Coated 81 MG Tablet PO SCH (08:51)
[2017-12-06] MEDS: Chlorhexidine Rinse 15 ML MOUTHWASH MM SCH ×2 (08:51→20:22)
--- NOTE | 2017-12-06 16:43 | Internal Med Progress Note ---
Date of Encounter: 12/06/17 Time of Encounter: 10:47 - Assessment and plan (1) Chest pain Current Visit: Yes Status: Resolved Assessment and plan: Resolved. S/P CABG x 4. Transferred to step down today. Continue medications as prescribed by concession worker and CT surgeon. Continue telemetry. Plan for discharge tomorrow after weaning supplemental O2 and PT/OT evaluation. Qualifiers: Chest pain type: chest pain due to myocardial ischemia Ischemic chest pain type: unstable angina pectoris Qualified Code(s): I20.0 - Unstable angina (2) Hypertension Current Visit: Yes Status: Resolved Assessment and plan: Resolved. Continue to monitor. Qualifiers: Hypertension type: essential hypertension Qualified Code(s): I10 - Essential (primary) hypertension (3) Abnormal stress test Current Visit: Yes Status: Acute Assessment and plan: Management as per above. (4) Tobacco abuse Current Visit: Yes Status: Chronic Assessment and plan: Counselled on smoking cessation. Decline nicotine replacement therapy. (5) DVT prophylaxis Current Visit: Yes Status: Acute Assessment and plan: Continue SQ heparin. Encourage ambulation. - Time Spent With Patient Total time spent is greater than 50% in coordination of care (as documented) at patient's floor/unit and/or counseling patient: - Subjective Interval history: Patient had no acute events overnight. He is "hot" and wants a fan, but no other complaints. He denies chest pain, SOB, fever, chills, palpitations, nausea, or vomiting. He is S/P CABG. Nurse is weaning supplemental oxygen back to room air. He is awaiting evaluation by PT/OT. He has no other complaints at this time. - Constitutional Vitals: Temp Pulse Resp BP Pulse Ox 98.3 F 75 16 137/85 94 12/06/17 10:59 12/06/17 15:35 12/06/17 11:56 12/06/17 10:59 12/06/17 11:56 General appearance: Present: cooperative, A&O X 3, pleasant, no acute distress, answers questions appropriately - Respiratory Respiratory exam: Present: CTAB. Absent: accessory muscle use, rales, rhonchi, wheezes Additional comments: Normal WOB - Cardiovascular Cardiovascular exam: Present: RRR, +S1, +S2. Absent: diastolic murmur, gallop, rubs, systolic murmur Additional comments: No BLE edema - GI/Abdominal GI/Abdominal exam: Present: normal bowel sounds, soft. Absent: distended, hepatomegaly, mass, splenomegaly, tenderness - Psychiatric Psychiatric exam: Present: normal affect, normal mood. Absent: agitated, anxious, depressed - Skin Skin exam: Present: dry, intact, warm. Absent: cyanosis, rash Internal Medicine: Result - Labs CBC & Chem 7: 12/06/17 03:50 12/06/17 03:50 Labs: Short CBC 12/06/17 Range/Units 03:50 WBC 7.7 (4.3-11.1) K/mcL Hgb 10.2 L (12.9-16.9) g/dL Hct 28.1 L (37.5-50.1) % Plt Count 130 L (140-400) K/mcL Neutrophils # 4.6 (1.6-8.9) K/mcL BMP 12/06/17 03:50 Sodium 135 L Potassium 3.9 Chloride 103 Carbon Dioxide 27 BUN 17 Creatinine 0.68 L Glucose 106 H Calcium 8.5 L - ABG Interpretation ABG results: ABG ABG pH 7.37 pH Units (7.32-7.45) 12/03/17 15:52 ABG pCO2 41 mmHg (35-45) 12/03/17 15:52 ABG pO2 84 mmHg (85-104) L 12/03/17 15:52 ABG O2 Saturation 96 % (95-98) 12/03/17 15:52 PT/INR, D-dimer PT 14.1 Seconds (9.4-12.1) H 12/04/17 04:00 D-Dimer 291 ng/mLFEU (0-500) 11/30/17 10:31 Consult Discharge Plan - Plan Additional Instructions: Please take your new medications as directed. Follow up with your PCP and cardiology as scheduled. Return to the ER as needed for any other problems or concerns. Stop smoking, this a way to reduce your risk of further heart disease. Eat a low cholesterol, low fat diet to also help to reduce your risk Return to your normal activities as tolerated. Return to work after you are cleared by your PCP. Referrals: Isaias Thakkar MD [Primary Care Provider] - 12/07/17 10:15 am
[2017-12-06] MEDS: *HR* FentaNYL (PF) 100 MCG/2 ML VIAL IVP PRN (22:02)
[2017-12-07] MEDS: Ketorolac 15 MG/ML VIAL IVP SCH ×3 (00:18→10:55)
[2017-12-07] MEDS: *HR* OxyCODONE/APAP 5/325 TABLET PO PRN ×3 (00:26→10:55)
[2017-12-07] MEDS: Nitroglycerin 25 MG/250 ML INFUS..BTL IVC SCH ×2 (04:33→15:20)
[2017-12-07] MEDS: *HR* Heparin 5,000 UNIT/ML VIAL SQ SCH (05:20)
[2017-12-07 05:39] LABS: Basophils % 0.7 %; Eosinophils # 0.1 K/mcL (0.0-0.6); Eosinophils % 1.4 %; Hematocrit 27.9 % (37.5-50.1); Hemoglobin 10.3 g/dL (12.9-16.9); Immature Granulocytes % 0.4 % (0-4); Mean Corpuscular HGB Conc 36.9 g/dL (31.6-35.5); Mean Corpuscular Volume 86.6 fL (83.0-100.0); Mean Platelet Volume 9.3 fL (9.4-12.4); Monocytes # 0.5 K/mcL (0.0-1.3); Monocytes % 9.5 %; Platelet Count 156 K/mcL (140-400); Red Blood Count 3.22 M/mcL (4.19-5.50)
[2017-12-07 05:57] LABS: BUN/Creatinine Ratio 24 (6-26); Blood Urea Nitrogen 19 mg/dL (6-20); Calcium 8.6 mg/dL (8.6-10.3); Carbon Dioxide 29 mEq/L (23-29); Chloride 103 mEq/L (98-107); Glucose 99 mg/dL (70-105); Osmolality,Calculated 286 (280-300); Potassium 3.8 mEq/L (3.5-5.1); Sodium 137 mEq/L (136-145); eGFR For African Americans > 60 (> 60); eGFR For Non-African Americans > 60 (> 60)
[2017-12-07] MEDS: Chlorhexidine Rinse 15 ML MOUTHWASH MM SCH (08:07)
[2017-12-07] MEDS: Aspirin Enteric Coated 81 MG Tablet PO SCH (08:07)
[2017-12-07] MEDS: Pantoprazole 40 MG VIAL IVP SCH (08:07)
[2017-12-07] MEDS: Insulin LISPRO 300 UNITS/3 ML VIAL SQ SCH ×2 (08:08→15:20)
--- NOTE | 2017-12-07 09:34 | Discharge Summary ---
Date of Encounter: 12/07/17 Time of Encounter: 09:34 - Discharge Diagnosis (1) CAD (coronary artery disease) Priority: Primary Status: Acute Qualifiers: Coronary Disease-Associated Artery/Lesion type: [place] artery [place] vs. transplanted heart: [place] heart Associated angina: with unstable angina Qualified Code(s): I25.110 - Atherosclerotic heart disease of [place] coronary artery with unstable angina pectoris - Hospital Course Hospital course: Mr. Conklin is a 47 year old hypertensive man with a strong family history of premature CAD. He was in his usual state of good health until earlier this week when he began experiencing substernal chest pressure, intrascapular pain, and left forearm tingling. The symptoms typically occurred with exertion and resolves spontaneously. He was evaluated at [place] emergency department on 11/30/2017. Given his presenting symptoms, is cardiac risk profile, and the family history of premature CAD, he was admitted for further cardiac workup. The patient underwent a nuclear stress test which revealed an LVEF 60% and a small mild to moderate intensity perfusion defect in the inferior wall. Subsequent cardiac catheterization revealed severe 3 vessel CAD and an LVEF 60% . In particular, the patient has a 50% distal left main lesion, a 90% proximal LAD lesion, a 70% proximal ramus intermediate branch lesion, a 20% proximal RCA lesion, a 70% mid RCA lesion. He has been recommended for CABG. He underwent CABG 4 on 12/03/2017. He remained hemodynamically postoperatively and was extubated quickly. The patient was transferred to the stepdown unit on POD#2 when a bed is available. Patient was ambulating without complaints of substernal chest pain or shortness of breath. Patient was then discharged home on POD#4. - Time Spent with Patient Total time spent providing and/or coordinating discharge services: - Discharge Medications Prescriptions: OxyCODONE/APAP 5/325 [Percocet 5/325 MG] 2 each PO Q4HR PRN 7 Days #84 tablet PRN Reason: Pain Metoprolol [Lopressor] 50 mg PO BID #60 tablet Oxycodone HCl/Acetaminophen [Percocet 5-325 mg Tablet] 2 each PO Q4H PRN 7 Days #84 tablet PRN Reason: Pain Rosuvastatin [Crestor] 40 mg PO HS #30 tablet Home Medications: Aspirin Enteric Coated [Aspirin EC] 81 mg PO DAILY #30 tablet. 12/01/17 [Rx] Metoprolol [Lopressor] 12.5 mg PO BID #60 tablet 12/01/17 [Rx] Aspirin Enteric Coated [Aspirin EC] 81 mg PO DAILY tablet. 12/07/17 [Rx] Metoprolol [Lopressor] 50 mg PO BID #60 tablet 12/07/17 [Rx] OxyCODONE/APAP 5/325 [Percocet 5/325 MG] 2 each PO Q4HR PRN 7 Days #84 tablet [Rx] Oxycodone HCl/Acetaminophen [Percocet 5-325 mg Tablet] 2 each PO Q4H PRN 7 Days #84 tablet 12/07/17 [Rx] Rosuvastatin [Crestor] 40 mg PO HS #30 tablet 12/07/17 [Rx] Allergies/Adverse Reactions: 3 Allergy/AdvReac Type Severity Reaction Status Date / Time No Known Allergies Allergy Verified 07/09/17 12:26 Date of admission: 12/03/17 15:21 Primary care physician: Isaias Thakkar MD Consults: 12/05/17 19:39 Consult to Household Appliances Salesperson [CONS] Routine Reason for SW Consult: 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 Does patient have active BEDREST order?: No Is patient medically & hemodynamically stable?: Yes Patient assessed for mobility or mobilized this visit?: No Consult to Physical Therapy [CONS] Stat Comment: Evaluate, develop and implement POC Reason for Consult: Please evaluate, treat, and make recommendations. Does patient have active BEDREST order?: No Is patient medically & hemodynamically stable?: Yes Patient assessed for mobility or mobilized this visit?: No 12/07/17 07:51 Consult to Occupational Therapy [CONS] Stat Comment: Evaluate, develop and implement POC Reason for Consult: S/P CABG. Plan for discharge today. Please evaluate and make recommendations. Please let me know once you see and evaluate him. Thanks. Does patient have active BEDREST order?: No Is patient medically & hemodynamically stable?: Yes Patient assessed for mobility or mobilized this visit?: No Consult to Physical Therapy [CONS] Stat Comment: Evaluate, develop and implement POC Reason for Consult: S/P CABG. Plan for discharge today. Please evaluate and make recommendations. Please let me know once you see and evaluate him. Thanks. Does patient have active BEDREST order?: No Is patient medically & hemodynamically stable?: Yes Patient assessed for mobility or mobilized this visit?: No Procedure(s) Performed: 1. Cardiac catheterization performed 12/01/2017. 2. CABG4 (SHEETS to LAD, sequential SVG to ramus intermediate branch then OM1, SVG to PDA) performed 12/03/2017. 3. Endoscopic vein harvesting, greater saphenous vein from right lower extremity performed 12/03/2017. Discharging clinician: Ruddy Pelayo Anticipated date of discharge: 12/07/17 Physical Examination Vital Signs, Last 4 Hours Temp Pulse Resp BP Pulse Ox 12/07/17 07:59 16 93 12/07/17 06:53 98.4 F 58 18 128/77 99 General: Conversant, No Apparent Distress Neck: No JVD, Normal carotid pulses Cardiac: Reg Rate and Rhythm, Normal S1 and S2, No Murmur Lungs: Normal Breath Sounds, No Wheeze, Rales, Rhonchi Neuro: Alert and responsive, No focal deficits noted Vascular: Normal capillary refill Abdomen: Soft, Non-tender Skin: No rashes noted on visualized skin Extremities: No Clubbing, No Cyanosis, No Edema, Normal Pulses - Patient Status Disposition: Home, Self-Care Condition: Good Functional capacity at discharge: independent ambulation Overall status at discharge: patient is progressing back to baseline - Discharge Instructions Follow Up With: Isaias Thakkar MD [Primary Care Provider] - 12/07/17 10:15 am - Diet and Activity Activity: sternal precautions, no driving for four weeks, no lifting greater than 10 pounds for eight weeks Diet: advance to your usual diet [facility] Aspirin Cont/Prescribed at DC: Yes Beta Moira Cont/Prescribed at DC: Yes Statin Cont/Prescribed at DC: Yes ANITHA/ARB Cont/Prescribed at DC: Not indicated (LVEF greater than 50%) - VTE Reasons for not Prescribing Prophylaxis: Not indicated-Anticoagulated or INR therapeutic Documentation of Mechanical Device: Graduated compression elastic hosiery
[2017-12-07 10:49] VITALS: BP 145/88
[2017-12-07] MEDS: *HR* FentaNYL (PF) 100 MCG/2 ML VIAL IVP PRN (15:28)
--- NOTE | 2017-12-07 16:53 | Internal Med Progress Note ---
Date of Encounter: 12/07/17 Time of Encounter: 10:37 - Assessment and plan (1) Chest pain Status: Resolved Assessment and plan: Resolved. S/P CABG x 4, now POD #4. Continue medications as prescribed by fleet sales associate and CT surgeon. Continue telemetry. Plan for discharge today by CT surgery. Will advise close follow up with cardiology, CT surgery, and cardiac rehab. Qualifiers: Chest pain type: chest pain due to myocardial ischemia Ischemic chest pain type: unstable angina pectoris Qualified Code(s): I20.0 - Unstable angina (2) Hypertension Status: Resolved Assessment and plan: Resolved. Continue to monitor. Qualifiers: Hypertension type: essential hypertension Qualified Code(s): I10 - Essential (primary) hypertension (3) Abnormal stress test Status: Acute Assessment and plan: Management as per above. (4) Tobacco abuse Status: Chronic Assessment and plan: Counselled on smoking cessation. Declines nicotine replacement therapy. (5) DVT prophylaxis Status: Acute Assessment and plan: Continue SQ heparin. Encourage ambulation. - Time Spent With Patient Total time spent is greater than 50% in coordination of care (as documented) at patient's floor/unit and/or counseling patient: less than 15 minutes - Subjective Interval history: Patient had no acute events overnight. He is doing well today and wants to go home if ready. He denies chest pain, SOB, fever, chills, palpitations, nausea, or vomiting. He is S/P CABG, now POD #4. He is now on room air. He is awaiting evaluation by PT/OT. He has no other complaints at this time. Nursing staff informed me that CT surgery plans to discharge him today. - Constitutional Vitals: Temp Pulse Resp BP Pulse Ox 98.5 F 62 16 145/88 95 12/07/17 10:45 12/07/17 10:45 12/07/17 11:34 12/07/17 10:45 12/07/17 11:34 General appearance: Present: cooperative, A&O X 3, pleasant, no acute distress, answers questions appropriately - Respiratory Respiratory exam: Present: CTAB. Absent: accessory muscle use, rales, rhonchi, wheezes Additional comments: Normal WOB - Cardiovascular Cardiovascular exam: Present: RRR, +S1, +S2. Absent: diastolic murmur, gallop, rubs, systolic murmur Additional comments: No BLE edema - GI/Abdominal GI/Abdominal exam: Present: normal bowel sounds, soft. Absent: distended, hepatomegaly, mass, splenomegaly, tenderness - Psychiatric Psychiatric exam: Present: normal affect, normal mood. Absent: agitated, anxious, depressed - Skin Skin exam: Present: dry, intact, warm. Absent: cyanosis, rash Internal Medicine: Result - Labs CBC & Chem 7: 12/07/17 05:00 12/07/17 05:00 Labs: Short CBC 12/07/17 Range/Units 05:00 WBC 5.7 (4.3-11.1) K/mcL Hgb 10.3 L (12.9-16.9) g/dL Hct 27.9 L (37.5-50.1) % Plt Count 156 (140-400) K/mcL Neutrophils # 3.0 (1.6-8.9) K/mcL BMP 12/07/17 05:00 Sodium 137 Potassium 3.8 Chloride 103 Carbon Dioxide 29 BUN 19 Creatinine 0.79 Glucose 99 Calcium 8.6 - ABG Interpretation ABG results: ABG ABG pH 7.37 pH Units (7.32-7.45) 12/03/17 15:52 ABG pCO2 41 mmHg (35-45) 12/03/17 15:52 ABG pO2 84 mmHg (85-104) L 12/03/17 15:52 ABG O2 Saturation 96 % (95-98) 12/03/17 15:52 PT/INR, D-dimer PT 14.1 Seconds (9.4-12.1) H 12/04/17 04:00 D-Dimer 291 ng/mLFEU (0-500) 11/30/17 10:31 - VTE Reasons for not Prescribing Prophylaxis: Not indicated-Anticoagulated or INR therapeutic Documentation of Mechanical Device: Graduated compression elastic hosiery Consult Discharge Plan - Plan Instructions: Metoprolol (By mouth), Oxycodone/Acetaminophen (By mouth), Rosuvastatin (By mouth), Coronary Artery Bypass Graft (DC) Additional Instructions: Please take your new medications as directed. Follow up with your PCP and cardiology as scheduled. Return to the ER as needed for any other problems or concerns. Stop smoking, this a way to reduce your risk of further heart disease. Eat a low cholesterol, low fat diet to also help to reduce your risk Return to your normal activities as tolerated. Return to work after you are cleared by your PCP. Referrals: Harjeet Sanchez, SOPHIA [Advanced Practice Nurse] - (Office will call patient at home with follow up appointment) Ruddy Pelayo MD [Partnered Physician] - 01/04/18 1:00 pm Isaias Thakkar MD [Primary Care Provider] - 12/11/17 10:15 am Prescriptions: OxyCODONE/APAP 5/325 [Percocet 5/325 MG] 2 each PO Q4HR PRN 7 Days #84 tablet PRN Reason: Pain Metoprolol [Lopressor] 50 mg PO BID #60 tablet Oxycodone HCl/Acetaminophen [Percocet 5-325 mg Tablet] 2 each PO Q4H PRN 7 Days #84 tablet PRN Reason: Pain Rosuvastatin [Crestor] 40 mg PO HS #30 tablet
== END 2017-12-07 16:20 | disposition home or self-care (01) | DRG 234 ==
LOC: EMEROO 10:25 → 3BNU 10:25 → ICNU 12-03 10:29 → 2NNU 12-06 09:32
PROVIDERS: ADMIT Internal Medicine; ATTEND Thoracic Surgery (Cardiothoracic Vascular Surgery)